=== PATIENT | female | born 1935 | race Caucasian/White ===

== ENCOUNTER 2017-12-08 12:27 | Inpatient (IN) | payer MEDICARE, OTHER ==
[2017-12-08] MEDS ORDERED: NITROGLYCERIN OINT 1 INCH/GM PACKET TOPICAL STA (12:55)
[2017-12-08] MEDS ORDERED: ASPIRIN 81 MG PO STA (12:55)
--- NOTE | 2017-12-08 13:00 | ED ---
General Adult HPI - General Chief complaint: Chest Pain Stated complaint: chest pain Time Seen by Provider: 12/08/17 12:30 Source: patient, RN notes reviewed Mode of arrival: wheelchair Limitations: no limitations - History of Present Illness Initial comments: Left arm pain or shortness of breath since yesterday. Patient states it started last night and continued today. Patient states she's had bypass surgery back in the 90s she also is a diabetic hypertensive and has high cholesterol. Patient states the pain has not gone away so she decided to come in today. Patient didn't want to come in last night because her is sick and he wants take care of her . Patient states she also was sweating last night when the pain started. Patient denies any nausea. Patient denies abdominal pain patient denies any vomiting or diarrhea. Patient denies any recent fever chills or cough. Patient denies lightheadedness dizziness or near syncopal episode. Patient denies any numbness or weakness. 20 legs or calf tenderness. - Related Data Home Medications Medication Instructions Recorded Confirmed Atorvastatin [Lipitor] 40 mg PO DAILY 12/08/17 12/08/17 Citalopram Hydrobromide [CeleXA] 20 mg PO DAILY 12/08/17 12/08/17 Citalopram Hydrobromide [CeleXA] 40 mg PO DAILY 12/08/17 12/08/17 Glycerin/Propylene Glycol 1 - 2 drops RIGHT EYE BID 12/08/17 12/08/17 [Artificial Tears Drops] Multivitamins, Thera [Multivitamin 1 tab PO DAILY 12/08/17 12/08/17 (formulary)] glipiZIDE [Glucotrol] 10 mg PO DAILY 12/08/17 12/08/17 Allergies Allergy/AdvReac Type Severity Reaction Status Date / Time No Known Allergies Allergy Verified 12/08/17 13:04 Review of Systems ROS Statement: Those systems with pertinent positive or pertinent negative responses have been documented in the HPI. ROS Other: All systems not noted in ROS Statement are negative. Past Medical History Past Medical History: Hypertension, Myocardial Infarction (OR) History of Any Multi-Drug Resistant Organisms: None Reported Past Surgical History: Appendectomy, Cholecystectomy, Coronary Bypass/CABG Past Psychological History: Anxiety Smoking Status: Never smoker Past Alcohol Use History: None Reported Past Drug Use History: None Reported General Exam - General Exam Comments Initial Comments: GENERAL: Patient is well-developed and well-nourished. Patient is nontoxic and well- hydrated and is in mild distress. ENT: Neck is soft and supple. No significant lymphadenopathy is noted. Oropharynx is clear. Moist mucous membranes. Neck has full range of motion without eliciting any pain. EYES: The sclera were anicteric and conjunctiva were pink and moist. Extraocular movements were intact and pupils were equal round and reactive to light. Eyelids were unremarkable. PULMONARY: Unlabored respirations. Good breath sounds bilaterally. No audible rales rhonchi or wheezing was noted. CARDIOVASCULAR: There is a regular rate and rhythm without any murmurs gallops or rubs. ABDOMEN: Soft and nontender with normal bowel sounds. No palpable organomegaly was noted. There is no palpable pulsatile mass. SKIN: Skin is clear with no lesions or rashes and otherwise unremarkable. NEUROLOGIC: Patient is alert and oriented x3. Cranial nerves II through XII are grossly intact. Motor and sensory are also intact. Normal speech, volume and content. Symmetrical smile. MUSCULOSKELETAL: Normal extremities with adequate strength and full range of motion. LYMPHATICS: No significant lymphadenopathy is noted PSYCHIATRIC: Normal psychiatric evaluation. Normal interpersonal interactions appears functionally intact in deals appropriately with others. No signs of depression. No signs of anxiety. Limitations: no limitations Course Vital Signs 12/08/17 12/08/17 12:28 13:41 Temperature 98.3 F Pulse Rate 85 78 Respiratory 18 18 Rate Blood Pressure 149/75 182/85 O2 Sat by Pulse 97 97 Oximetry Medical Decision Making - Medical Decision Making EKG shows normal sinus rhythm 82 bpm NE interval is on a 56 dresses under 26 QT interval 454 QTC is 5:30. Patient's EKG shows no acute abnormalities from the previous EKG there is a right bundle skye block was seen previously. Chest x-ray shows no acute abnormality. Chest CT did not show any signs of an aneurysm though a contrast study would be better but her creatinine to about allow us to do that. - Lab Data Result diagrams: 12/08/17 12:57 12/08/17 12:57 Lab Results 12/08/17 12/08/17 12/08/17 Range/Units 12:57 12:57 12:57 WBC 19.3 H (3.8-10.6) k/uL RBC 3.97 (3.80-5.40) m/uL Hgb 11.2 L (11.4-16.0) gm/dL Hct 35.3 (34.0-46.0) % MCV 88.8 (80.0-100.0) fL MCH 28.1 (25.0-35.0) pg MCHC 31.7 (31.0-37.0) g/dL RDW 17.2 H (11.5-15.5) % Plt Count 368 (150-450) k/uL Neutrophils % 83 % Lymphocytes % 10 % Monocytes % 5 % Eosinophils % 1 % Basophils % 0 % Neutrophils # 16.0 H (1.3-7.7) k/uL Lymphocytes # 2.0 (1.0-4.8) k/uL Monocytes # 0.9 (0-1.0) k/uL Eosinophils # 0.2 (0-0.7) k/uL Basophils # 0.0 (0-0.2) k/uL Anisocytosis Slight PT (9.0-12.0) sec INR (<1.2) APTT (22.0-30.0) sec Sodium 142 (137-145) mmol/L Potassium 3.3 L (3.5-5.1) mmol/L Chloride 104 (98-107) mmol/L Carbon Dioxide 22 (22-30) mmol/L Anion Gap 16 mmol/L BUN 22 H (7-17) mg/dL Creatinine 1.60 H (0.52-1.04) mg/dL Est GFR (CKD-EPI)AfAm 35 (>60 ml/min/1.73 sqM) Est GFR (CKD-EPI)NonAf 30 (>60 ml/min/1.73 sqM) Glucose 134 H (74-99) mg/dL Calcium 9.8 (8.4-10.2) mg/dL Magnesium 1.6 (1.6-2.3) mg/dL Total Bilirubin 0.7 (0.2-1.3) mg/dL AST 22 (14-36) U/L ALT 21 (9-52) U/L Alkaline Phosphatase 123 (38-126) U/L Total Creatine Kinase 42 (30-135) U/L CK-MB (CK-2) 0.8 (0.0-2.4) ng/mL CK-MB (CK-2) Rel Index 1.9 Troponin I 0.015 (0.000-0.034) ng/mL Total Protein 7.7 (6.3-8.2) g/dL Albumin 3.9 (3.5-5.0) g/dL Urine Color Urine Appearance (Clear) Urine pH (5.0-8.0) Ur Specific [place] (1.001-1.035) Urine Protein (Negative) Urine Glucose (UA) (Negative) Urine Ketones (Negative) Urine Blood (Negative) Urine Nitrite (Negative) Urine Bilirubin (Negative) Urine Urobilinogen (<2.0) mg/dL Ur Leukocyte Esterase (Negative) Urine RBC (0-5) /hpf Urine WBC (0-5) /hpf Urine WBC Clumps (None) /hpf Ur Squamous Epith Cells (0-4) /hpf Urine Bacteria (None) /hpf Hyaline Casts (0-2) /lpf Urine Mucus (None) /hpf 12/08/17 12/08/17 Range/Units 12:57 14:25 WBC (3.8-10.6) k/uL RBC (3.80-5.40) m/uL Hgb (11.4-16.0) gm/dL Hct (34.0-46.0) % MCV (80.0-100.0) fL MCH (25.0-35.0) pg MCHC (31.0-37.0) g/dL RDW (11.5-15.5) % Plt Count (150-450) k/uL Neutrophils % % Lymphocytes % % Monocytes % % Eosinophils % % Basophils % % Neutrophils # (1.3-7.7) k/uL Lymphocytes # (1.0-4.8) k/uL Monocytes # (0-1.0) k/uL Eosinophils # (0-0.7) k/uL Basophils # (0-0.2) k/uL Anisocytosis PT 11.0 (9.0-12.0) sec INR 1.1 (<1.2) APTT 26.4 (22.0-30.0) sec Sodium (137-145) mmol/L Potassium (3.5-5.1) mmol/L Chloride (98-107) mmol/L Carbon Dioxide (22-30) mmol/L Anion Gap mmol/L BUN (7-17) mg/dL Creatinine (0.52-1.04) mg/dL Est GFR (CKD-EPI)AfAm (>60 ml/min/1.73 sqM) Est GFR (CKD-EPI)NonAf (>60 ml/min/1.73 sqM) Glucose (74-99) mg/dL Calcium (8.4-10.2) mg/dL Magnesium (1.6-2.3) mg/dL Total Bilirubin (0.2-1.3) mg/dL AST (14-36) U/L ALT (9-52) U/L Alkaline Phosphatase (38-126) U/L Total Creatine Kinase (30-135) U/L CK-MB (CK-2) (0.0-2.4) ng/mL CK-MB (CK-2) Rel Index Troponin I (0.000-0.034) ng/mL Total Protein (6.3-8.2) g/dL Albumin (3.5-5.0) g/dL Urine Color Yellow Urine Appearance Cloudy H (Clear) Urine pH 6.5 (5.0-8.0) Ur Specific [place] 1.015 (1.001-1.035) Urine Protein 3+ H (Negative) Urine Glucose (UA) Negative (Negative) Urine Ketones Negative (Negative) Urine Blood Moderate H (Negative) Urine Nitrite Negative (Negative) Urine Bilirubin Negative (Negative) Urine Urobilinogen <2.0 (<2.0) mg/dL Ur Leukocyte Esterase Large H (Negative) Urine RBC 44 H (0-5) /hpf Urine WBC >182 H (0-5) /hpf Urine WBC Clumps Many H (None) /hpf Ur Squamous Epith Cells <1 (0-4) /hpf Urine Bacteria Many H (None) /hpf Hyaline Casts 11 H (0-2) /lpf Urine Mucus Rare H (None) /hpf Disposition Clinical Impression: Chest pain, Urinary tract infection Disposition: ADMITTED IP TO THIS HOSP Referrals: Coni Lopez NPC [REFERRING] - 1-2 days Time of Disposition: 14:58
[2017-12-08 13:10] LABS: Anisocytosis Slight; Basophils % (A) 0 %; Eosinophils # (A) 0.2 k/uL (0-0.7); Eosinophils % (A) 1 %; HCT 35.3 % (34.0-46.0); HGB 11.2 gm/dL (11.4-16.0); Lymphocytes % (A) 10 %; MCH 28.1 pg (25.0-35.0); MCHC 31.7 g/dL (31.0-37.0); MCV 88.8 fL (80.0-100.0); Monocytes # (A) 0.9 k/uL (0-1.0); Monocytes % (A) 5 %; Neutrophils % (A) 83 %; Platelet Count 368 k/uL (150-450); RBC 3.97 m/uL (3.80-5.40); RDW 17.2 % (11.5-15.5); WBC 19.3 k/uL (3.8-10.6)
[2017-12-08 13:18] LABS: INR 1.1 (<1.2); Partial Thromboplastin Time 26.4 sec (22.0-30.0)
[2017-12-08 13:23] LABS: Albumin 3.9 g/dL (3.5-5.0); Calcium 9.8 mg/dL (8.4-10.2); Magnesium 1.6 mg/dL (1.6-2.3); Potassium 3.3 mmol/L (3.5-5.1); Total Bilirubin 0.7 mg/dL (0.2-1.3); Total Protein 7.7 g/dL (6.3-8.2)
--- NOTE | 2017-12-08 13:31 | XR ---
EXAMINATION TYPE: XR chest 2V DATE OF EXAM: 12/08/2017 COMPARISON: 03/10/2013 TECHNIQUE: PA and lateral views submitted. HISTORY: Chest pain FINDINGS: The lungs are clear and there is no pneumothorax, pleural effusion, or focal pneumonia. Subsegmenta l changes at both lung bases. Postoperative change. Arthropathy of the shoulders. Atherosclerotic jorge nge aorta. Degenerative change spine. Surgical clips in the abdomen. Mild cardiomegaly noted. IMPRESSION: 1. Mild cardiomegaly. Basilar atelectasis favored over infiltrate.
[2017-12-08 13:39] LABS: Creatine Kinase MB 0.8 ng/mL (0.0-2.4); Troponin I 0.015 ng/mL (0.000-0.034)
--- NOTE | 2017-12-08 14:29 | CT ---
EXAMINATION TYPE: CT chest wo con DATE OF EXAM: 12/08/2017 COMPARISON: 09/03/2011 HISTORY: Left sided chest pain starting yesterday. CT DLP: 210.8 mGycm. Automated Exposure Control for Dose Reduction was Utilized. TECHNIQUE: CT scan of the thorax is performed without IV contrast. FINDINGS: LUNGS: The lungs are grossly clear, there is no concerning parenchymal mass or nodule identified. T here is no pleural effusion or pneumothorax seen. The tracheobronchial tree is patent. There is inte rlobular septal thickening compatible with chronic interstitial lung disease. Calcifications in the l ilia suggestive of granuloma. MEDIASTINUM: Lack of IV contrast is noted to limit evaluation for mediastinal and especially hilar ad enopathy. There are no definitive greater than 1 cm hilar or mediastinal lymph nodes. Heart is enlarg ed. There are sternotomy wires and coronary artery calcification. Assessment for of the aorta is limited due to lack of contrast. There is mild atherosclerotic changes with no evidence of aneurysm. OTHER: Surgical clips in the gallbladder fossa are noted. Splenic granuloma noted. Hiatal hernia note d and there is a left renal mass measuring 10 Hounsfield units compatible simple cyst. Arthropathy of the shoulders greater on the left. IMPRESSION: 1. Correlate for pulmonary fibrosis. 2. Aorta of normal caliber with mild atherosclerotic changes. 3. Dense coronary artery calcification. 4. Hiatal hernia. There is a calcification or possibly ingested material within the distal esophagus which could be related to perhaps an ingested pill correlate clinically. 5. Granulomatous disease.
[2017-12-08 14:52] LABS: Appearance,Urine Cloudy (Clear); Bacteria,Urine Many /hpf; Bilirubin,Urine Negative (Negative); Blood,Urine Moderate (Negative); Color,Urine Yellow; Glucose,Urine (UA) Negative (Negative); Hyaline Casts,Urine 11 /lpf (0-2); Ketones,Urine Negative (Negative); Leukocyte Esterase,Urine Large (Negative); Mucus,Urine Rare /hpf; Nitrite,Urine Negative (Negative); PH, Urine 6.5 (5.0-8.0); Protein,Urine 3+ (Negative); RBC,Urine 44 /hpf (0-5); Specific Gravity,Urine 1.015 (1.001-1.035); Squamous Epithelial Cell,Urine <1 /hpf (0-4); Urobilinogen,Urine <2.0 mg/dL (<2.0); WBC,Urine >182 /hpf (0-5)
[2017-12-08] MEDS ORDERED: cefTRIAXone 2,000 MG in SODIUM CHLORIDE 0.9% 100 ML IVPB STA (14:56)
[2017-12-08] MEDS ORDERED: NITROGLYCERIN SL TABS 0.4 MG TAB SUBLINGUAL PRN (14:59)
[2017-12-08] MEDS ORDERED: cefTRIAXone IN SWFI 2,000 MG/20 ML SYRINGE IVP ONE (15:00)
[2017-12-08] MEDS: NITROGLYCERIN OINT 1 INCH/GM PACKET TOPICAL SCH ×2 (18:54→23:48)
[2017-12-08 19:28] LABS: Creatine Kinase 39 U/L (30-135)
[2017-12-08 19:41] LABS: Troponin I <0.012 ng/mL (0.000-0.034)
[2017-12-08 21:07] LABS: Glucose,Whole Blood 169 mg/dL (75-99)
[2017-12-08] MEDS ORDERED: MELATONIN 3 MG TABLET PO PRN (22:16)
[2017-12-08] MEDS ORDERED: ONDANSETRON 4 MG/2 ML VIAL IVP PRN (22:16)
[2017-12-08] MEDS ORDERED: CALCIUM CARBONATE 500 MG CHEWABLE PO PRN (22:16)
[2017-12-08] MEDS ORDERED: ALPRAZolam 0.25 MG TAB PO PRN (22:16)
[2017-12-08] MEDS ORDERED: MAGNESIUM HYDROXIDE 2,400 MG/10 ML CUP PO PRN (22:16)
[2017-12-08] MEDS ORDERED: ACETAMINOPHEN TAB 325 MG TAB PO PRN (22:16)
[2017-12-08] MEDS ORDERED: LACTULOSE 20 GM/30 ML CUP PO PRN (22:16)
[2017-12-08] MEDS ORDERED: POTASSIUM CHLORIDE ER 20 MEQ TAB.ER PO STA (23:13)
[2017-12-08] MEDS ORDERED: SODIUM CHLORIDE 0.9% 1,000 ML IV SCH (23:15)
[2017-12-08] MEDS: ARTIFICIAL TEARS-HYPROMELLOSE DROPS 15 ML BTL BOTH EYES SCH (23:48)
--- NOTE | 2017-12-08 23:53 | HP ---
HISTORY AND PHYSICAL DATE OF ADMISSION: 12/08/2017 DATE OF SERVICE: December 08, 2017. PRESENTING COMPLAINT: Chest pain. HISTORY OF PRESENTING COMPLAINT: A very pleasant 82-year-old patient who follows with Dr. Bourgeois and him clerk Dr. Rust. Chronic stable medical conditions include diabetes, hypertension, osteoarthritis. The patient has had a previous bypass. Follows with Dr. Rust the him clerk. She states she had a stress test over a year ago that was negative. The patient takes care of her stroke ridden . Yesterday patient developed a grabbing sensation over the left side of the chest that lasted most of the day and overnight. The patient became short of breath, dizzy, lightheaded, also broke out in a sweat. said the symptoms lasted for the whole time. Symptoms are greatly improved since then. Patient presented to the ER. The patient is found to have infected urine, elevated white count with the ER hence the patient was put on antibiotics. The patient is admitted for unstable angina. Currently chest pain free. Does feel tired and run down. REVIEW OF SYSTEMS: CONSTITUTIONAL: Tired. HEENT none. RESPIRATORY as above. CARDIOVASCULAR as above. GASTROINTESTINAL. None. GENITOURINARY: None. MUSCULOSKELETAL: Arthritic pain in multiple joints. DERMATOLOGIC, HEMATOLOGIC AND LYMPHATICS: None. PSYCHIATRY none. NEUROLOGICAL none. PAST MEDICAL HISTORY: Diabetes, hypertension, coronary artery disease with bypass, primary osteoarthritis, skin cancer. Chronic colon prolapse. PAST SURGICAL HISTORY: Appendectomy, cholecystectomy, coronary artery bypass, skin cancer removal from the nose, right eye cataract removed, colonoscopy with polyp removed, right total knee arthroplasty, partial hysterectomy. PSYCH HISTORY: Anxiety. SOCIAL HISTORY: Does use a cane and a walker to get about. No smoking. No alcohol. FAMILY HISTORY: Reviewed, noncontributory to presentation. HOME MEDICATIONS: 1. Glucotrol 10 mg a day. 2. Multivitamin 1 tablet p.o. daily. 3. Artificial Tears 1-2 drops right eye b.i.d. 4. Celexa 60 mg a day. 5. Lipitor 40 mg a day. ALLERGIES: None. PHYSICAL EXAMINATION: VITAL SIGNS: Temperature 97.8, pulse 79, respiration 16, blood pressure 162/62. Pulse ox 94 percent on 2 L. GENERAL APPEARANCE: Well built, BMI 30.1. Lying in bed, tired appearing. EYES: Pupils equal. Conjunctivae normal. HEENT: External appearance of nose and ears normal. Oral cavity normal. NECK JVD not raised. Mass not palpable. RESPIRATORY: Effort normal. LUNGS: Fair air entry. CARDIOVASCULAR: 1st and second sounds normal. No edema. ABDOMEN: Soft, nontender. Liver and spleen not palpable. LYMPHATICS: No lymph nodes palpable in the neck and axillae. PSYCHIATRY: Alert and oriented times three. Mood and affect slightly anxious- appearing. NEUROLOGICAL: Pupils equal. Cranial nerves grossly intact. Power and sensation grossly intact. MUSCULOSKELETAL: Evidence of severe osteoarthritis in the hands and knees, especially the left foot. INVESTIGATIONS: White count 9.3, hemoglobin 11.2, potassium 3.3, BUN 22, creatinine 1.6060. Lactic acid 2.3. Troponin 0.015, less than 0.012. UA positive for leukocyte esterase. WBC clumps. EKG tracing interpreted by me shows right bundle branch block. Chest x-ray film interpreted by me shows cardiomegaly. ASSESSMENT: 1. Unstable angina in a patient with known coronary artery disease presented with cardiac sounding presentation. Negative stress test over a year ago. The patient may need a cardiac catheterization for more definitive given her presentation. 2. Coronary artery disease, prior history of coronary bypass. 3. Severe primary osteoarthritis multiple joints bilateral. 4. Essential hypertension. 5. Diabetes mellitus type 2 on oral hypoglycemic. 6. Chronic gait dysfunction uses a baseline cane and a walker. 7. Obesity; BMI 30.1. 8. Depression not otherwise specified. 9. Acute urinary tract infection, suspect cystitis. 10.Renal failure, possibly chronic kidney disease stage 3 probably from nephrosclerosis or diabetic nephropathy. PLAN: Home medications resumed. Nitroglycerin paste. We will hold off Glucotrol and follow Accu-Cheks. The patient will be kept n.p.o. after midnight except for medication for possible cardiac catheterization. Though the patient's creatinine is elevated. Will do renal ultrasound to check for chronicity. Copy to Dr. Phelan. CLARA / BRIAN: [id number] /
[2017-12-09 01:32] LABS: Troponin I 0.012 ng/mL (0.000-0.034)
[2017-12-09 05:36] LABS: Glucose,Whole Blood 109 mg/dL (75-99)
[2017-12-09] MEDS: INSULIN ASPART 100 UNIT/ML 1 ML 10 ML VIAL SQ SCH ×3 (05:57→18:46)
[2017-12-09] MEDS: NITROGLYCERIN OINT 1 INCH/GM PACKET TOPICAL SCH ×4 (05:57→22:53)
[2017-12-09 06:02] LABS: Anisocytosis Slight; HCT 31.3 % (34.0-46.0); HGB 9.9 gm/dL (11.4-16.0); Hypochromasia Slight; MCH 28.5 pg (25.0-35.0); MCHC 31.6 g/dL (31.0-37.0); MCV 90.3 fL (80.0-100.0); Mean Platelet Volume 7.1; Platelet Count 334 k/uL (150-450); RBC 3.47 m/uL (3.80-5.40); WBC 12.5 k/uL (3.8-10.6)
[2017-12-09 06:12] LABS: Calcium 9.1 mg/dL (8.4-10.2); Potassium 3.5 mmol/L (3.5-5.1)
[2017-12-09] MEDS ORDERED: ASPIRIN 325 MG TAB PO SCH (09:00)
[2017-12-09] MEDS: ARTIFICIAL TEARS-HYPROMELLOSE DROPS 15 ML BTL BOTH EYES SCH ×4 (09:15→20:18)
[2017-12-09] MEDS: ATORVASTATIN 40 MG TAB PO SCH (09:15)
[2017-12-09] MEDS: MULTIVITAMINS, THERA 1 EACH TAB PO SCH (09:16)
[2017-12-09] MEDS: CITALOPRAM HYDROBROMIDE 20 MG TAB PO SCH ×2 (09:18)
--- NOTE | 2017-12-09 09:32 | US ---
EXAMINATION TYPE: US renals and bladder DATE OF EXAM: 12/09/2017 COMPARISON: NONE CLINICAL HISTORY: assess kidney-for ckd; diabetic EXAM MEASUREMENTS: Right Kidney: 6.4 x 4.0 x 4.1 cm Left Kidney: 9.7 x 5.2 x 4.9 cm Post Void Residual Volume: not assessed on inpatient Right Kidney: small for size and as compared to left kidney; poor corticomedullary differentiation; v iews are limited by overlying bowel gas Left Kidney: mid pole cyst is noted with focal echogenic region possibly represent calcification note d, cyst size = 2.7 x 2.2 x 2.9cm Bladder: not fully distended as not prepped for assessment Bilateral Jets seen: NO, only left ureteral jet was seen after 3 minute observation IMPRESSION: Findings compatible with medical renal disease. Left renal cyst is not clearly simple cystic Limited exam.
[2017-12-09] MEDS ORDERED: NITROGLYCERIN SL TABS 0.4 MG TAB SUBLINGUAL PRN (09:45)
[2017-12-09] MEDS ORDERED: ATORVASTATIN 80 MG TAB PO STA (09:45)
[2017-12-09] MEDS ORDERED: ALPRAZolam 0.25 MG TAB PO PRN (09:45)
[2017-12-09] MEDS ORDERED: ALPRAZolam 0.5 MG TAB PO PRN (09:45)
[2017-12-09] MEDS ORDERED: ASPIRIN 325 MG TAB PO STA (09:45)
[2017-12-09] MEDS: cefTRIAXone IN SWFI 1,000 MG/10 ML SYRINGE IVP SCH (11:12)
[2017-12-09] MEDS: SODIUM CHLORIDE 0.9% 1,000 ML IV SCH ×2 (11:15→18:49)
[2017-12-09 11:45] LABS: Glucose,Whole Blood 196 mg/dL (75-99)
--- NOTE | 2017-12-09 12:12 | ECHOF ---
Referral Reason:cad MEASUREMENTS -------- HEIGHT: 127.0 cm WEIGHT: 55.8 kg BP: 143/65 IVSd: 1.3 cm (0.6 - 1.1) LVIDd: 3.8 cm (3.9 - 5.3) LVPWd: 1.3 cm (0.6 - 1.1) IVSs: 1.5 cm LVIDs: 3.1 cm LVPWs: 1.5 cm LA Diam: 4.0 cm (2.7 - 3.8) LAESV Index (A-L): 41.33 ml/m Ao Diam: 2.8 cm (2.0 - 3.7) AV Cusp: 1.1 cm (1.5 - 2.6) LA Diam: 4.1 cm (2.7 - 3.8) MV EXCURSION: 15.618 mm (> 18.000) MV EF SLOPE: 59 mm/s (70 - 150) EPSS: 0.4 cm MV E Ayan: 0.64 m/s MV DecT: 260 ms MV A Ayan: 1.04 m/s MV E/A Ratio: 0.61 RAP: 5.00 mmHg RVSP: 35.32 mmHg FINDINGS -------- Sinus rhythm. This was a technically good study. The left ventricular size is normal. There is moderate concentric left ventricular hypertrophy. O verall left ventricular systolic function is low-normal with, an EF between 50 - 55 %. The right ventricle is normal in size. The left atrium is mildly dilated. LA is severely dilated >40 ml/m2 The right atrial size is normal. There is mild aortic valve sclerosis. There is no evidence of aortic regurgitation. Mild mitral annular calcification present. Moderate mitral regurgitation is present. Mild tricuspid regurgitation present. There is mild pulmonary hypertension. The right ventricular systolic pressure, as measured by Doppler, is 35.32mmHg. Trace/mild (physiologic) pulmonic regurgitation. The aortic root size is normal. There is no pericardial effusion. CONCLUSIONS -------- 1. The left ventricular size is normal. 2. There is moderate concentric left ventricular hypertrophy. 3. Overall left ventricular systolic function is low-normal with, an EF between 50 - 55 %. 4. The right ventricle is normal in size. 5. The left atrium is mildly dilated. 6. LA is severely dilated >40 ml/m2 7. The right atrial size is normal. 8. There is mild aortic valve sclerosis. 9. Mild mitral annular calcification present. 10. Moderate mitral regurgitation is present. 11. Mild tricuspid regurgitation present. 12. There is mild pulmonary hypertension. 13. The right ventricular systolic pressure, as measured by Doppler, is 35.32mmHg. 14. Trace/mild (physiologic) pulmonic regurgitation. 15. The aortic root size is normal. 16. There is no pericardial effusion. DOOR CAPTAIN: Lisa Santana RDCS
[2017-12-09] MEDS: SODIUM CHLORIDE 0.9% 1,000 ML in EMPTY BAG 1 BAG IV ONE ×2 (13:01→22:53)
--- NOTE | 2017-12-09 16:06 | P.CRDCN ---
History of Present Illness Consult date: 12/09/17 Requesting physician: Scott Gordon Consult reason: chest pain Chief complaint: Chest pain History of present illness: This is an 82-year-old female who follows regularly with Dr. Rust in the office. She has a known history of coronary artery disease with prior bypass surgery in 1997 at which time she underwent a mid-to the LAD, saphenous vein graft to the diuretic. She did have a heart cath in 2006 which revealed 2 patent grafts and 60% mid PLV stenosis, history also of diabetes, hypertension, hyperlipidemia, peripheral vascular disease. Patient presents to the hospital with symptoms of chest pressure and heaviness, she states it felt like a band around her chest. She became extremely diaphoretic and short of breath with the symptoms. According to the patient, she states was having a heart attack. Overall the patient has been doing quite well, no recent angina. Symptoms initially started the day prior to admission, but because she takes care of her who has had a prior stroke, she delayed coming in for one day. Chest x- ray on admission showed mild cardiomegaly with basilar atelectasis favored over infiltrate. CAT scan of the chest was also performed which revealed aorta of normal caliber with mild atherosclerotic changes, possible pulmonary fibrosis, hiatal hernia. EKG shows normal sinus rhythm with right bundle branch block pattern and nonspecific ST-T wave changes. Blood pressure 124/60 with a heart rate in the 80s, 93% on 2. Oxygen. White blood cell count 19.3 on admission, 12.5 this morning, hemoglobin 11.2 on admission, 9.9 this morning, platelet count 334. Sodium 141, potassium 3.5, BUN 22, creatinine 1.4. Magnesium 1.6. Troponins negative 3. At the time of my examination this morning, patient is currently chest pain-free. Past Medical History Past Medical History: Cancer, Diabetes Mellitus, Hypertension, Myocardial Infarction ([place]), Osteoarthritis ([place]) Additional Past Medical History / Comment(s): skin cancer(nose) Last Myocardial Infarction Date:: 1997 History of Any Multi-Drug Resistant Organisms: None Reported Past Surgical History: Appendectomy, Cholecystectomy, Coronary Bypass/CABG, Hysterectomy Additional Past Surgical History / Comment(s): skin cancer removed fromnose, rt eye cataract removed, colonoscopy/polyps removed were benign, total rt knee replacement, partial hysterectomy Past Anesthesia/Blood Transfusion Reactions: No Reported Reaction Smoking Status: Never smoker - Past Family History Father History Unknown: Yes Mother History Unknown: Yes Medications and Allergies Home Medications Medication Instructions Recorded Confirmed Type Atorvastatin [Lipitor] 40 mg PO DAILY 12/08/17 12/08/17 History Citalopram Hydrobromide [CeleXA] 20 mg PO DAILY 12/08/17 12/08/17 History Citalopram Hydrobromide [CeleXA] 40 mg PO DAILY 12/08/17 12/08/17 History Glycerin/Propylene Glycol 1 - 2 drops RIGHT EYE BID 12/08/17 12/08/17 History [Artificial Tears Drops] Multivitamins, Thera [Multivitamin 1 tab PO DAILY 12/08/17 12/08/17 History (formulary)] glipiZIDE [Glucotrol] 10 mg PO DAILY 12/08/17 12/08/17 History Allergies Allergy/AdvReac Type Severity Reaction Status Date / Time No Known Allergies Allergy Verified 12/08/17 13:04 Physical Exam Vitals: Vital Signs Temp Pulse Pulse Resp BP BP Pulse Ox 12/09/17 12:00 98.1 F 81 18 125/59 93 L 12/09/17 08:00 98.3 F 69 18 137/59 98 12/09/17 04:00 72 16 143/65 98 12/09/17 02:35 98.3 F 86 16 115/51 96 12/09/17 00:00 86 12/08/17 20:30 99.3 F 76 16 140/66 96 12/08/17 19:19 97.8 F 79 16 162/62 94 L 12/08/17 18:00 79 16 154/68 97 12/08/17 17:00 74 16 161/73 99 12/08/17 16:00 76 16 171/70 99 Intake and Output 12/09/17 12/09/17 12/09/17 06:59 14:59 22:59 Intake Total 240 Balance 240 Intake: Oral 240 Other: Voiding Method Diaper Diaper # Voids 1 1 # Bowel Movements 1 Weight 56 kg PHYSICAL EXAMINATION: GENERAL: 82-year-old female in no acute distress at the time of my examination HEENT: Head is atraumatic, normocephalic. Pupils equal, round. Sclera anicteric. Conjunctiva are clear. Mucous membranes of the mouth are moist. Neck is supple. There is no elevated jugular venous pressure. No carotid bruit is heard. HEART EXAMINATION: Heart S1, S2 normal. No murmur or gallop heard. CHEST EXAMINATION: Lungs are clear to auscultation and precussion. No chest wall tenderness is noted on palpation or with deep breathing. ABDOMEN: Soft, nontender. Bowel sounds are heard. No organomegaly noted. EXTREMITIES: 2+ peripheral pulses with no evidence of peripheral edema and no calf tenderness noted. NEUROLOGIC patient is awake, alert and oriented X3. . Results 12/09/17 05:32 12/09/17 05:32 Cardiac Enzymes 12/08/17 12/09/17 Range/Units 18:48 00:29 CK-MB (CK-2) 1.0 1.0 (0.0-2.4) ng/mL Troponin I <0.012 0.012 (0.000-0.034) ng/mL Lipids 12/09/17 Range/Units 05:32 Triglycerides 154 H (<150) mg/dL Cholesterol 138 (<200) mg/dL HDL Cholesterol 51 (40-60) mg/dL CBC 12/09/17 Range/Units 05:32 WBC 12.5 H (3.8-10.6) k/uL RBC 3.47 L (3.80-5.40) m/uL Hgb 9.9 L (11.4-16.0) gm/dL Hct 31.3 L (34.0-46.0) % Plt Count 334 (150-450) k/uL Comprehensive Metabolic Panel 12/09/17 Range/Units 05:32 Sodium 141 (137-145) mmol/L Potassium 3.5 (3.5-5.1) mmol/L Chloride 106 (98-107) mmol/L Carbon Dioxide 26 (22-30) mmol/L BUN 22 H (7-17) mg/dL Creatinine 1.47 H (0.52-1.04) mg/dL Glucose 106 H (74-99) mg/dL Calcium 9.1 (8.4-10.2) mg/dL Current Medications Generic Name Dose Route Start Last Admin Trade Name Freq PRN Reason Stop Dose Admin Acetaminophen 650 mg 12/08/17 22:16 Tylenol Tab PO Q6HR PRN Mild Pain or Fever > 100.5 Alprazolam 0.25 mg 12/09/17 09:45 Xanax PO Q6HR PRN Mild Anxiety Alprazolam 0.5 mg 12/09/17 09:45 Xanax PO Q6HR PRN Moderate Anxiety Artificial Tears 2 drops 12/08/17 22:15 12/09/17 11:16 Artificial Tear Drops BOTH EYES Not Given QID JAIRO Aspirin 81 mg 12/10/17 09:00 Aspirin PO DAILY [facility] Atorvastatin Calcium 40 mg 12/09/17 09:00 12/09/17 09:15 Lipitor PO 40 mg DAILY JAIRO Administration Calcium Carbonate/Glycine 1,000 mg 12/08/17 22:16 Tums PO Q4HR PRN Dyspepsia Ceftriaxone Sodium 1,000 mg 12/09/17 09:00 12/09/17 11:12 Rocephin IVP 1,000 mg Q24HR JAIRO Administration Citalopram Hydrobromide 40 mg 12/09/17 09:00 12/09/17 09:18 Celexa PO 40 mg DAILY JAIRO Administration Citalopram Hydrobromide 20 mg 12/09/17 09:00 12/09/17 09:18 Celexa PO 20 mg DAILY JAIRO Administration Sodium Chloride 1,000 mls @ 100 mls/hr 12/09/17 09:45 12/09/17 11:15 Saline 0.9% IV 100 mls/hr .Q10H JAIRO Administration Sodium Chloride 1,000 ml/ IV 1,000 mls @ 56 mls/hr 12/09/17 09:45 12/09/17 13 :01 Solution IV 12/10/17 03:36 Not Given .[id number] ONE 1 ML/KG/HR Insulin Aspart 0 unit 12/09/17 07:30 12/09/17 13:00 Novolog SQ 2 unit AC-TID JAIRO Administration Protocol Lactulose 20 gm 12/08/17 22:16 Cephulac PO DAILY PRN Constipation Losartan Potassium 25 mg 12/10/17 09:00 Cozaar PO DAILY JAIRO Magnesium Hydroxide 2,400 mg 12/08/17 22:16 Milk Of Magnesia PO DAILY PRN Constipation Melatonin 3 mg 12/08/17 22:16 Melatonin PO HS PRN Insomnia Multivitamins 1 each 12/09/17 12:00 12/09/17 09:16 Theragran PO 1 each DAILY@1200 JAIRO Administration Nitroglycerin 1 inch 12/08/17 18:00 12/09/17 11:23 Nitro-Bid Oint TOPICAL 1 inch Q6HR JAIRO Administration Nitroglycerin 0.4 mg 12/08/17 14:59 Nitrostat SUBLINGUAL Q5M PRN Chest Pain Nitroglycerin 0.4 mg 12/09/17 09:45 Nitrostat SUBLINGUAL Q5M PRN Chest Pain Ondansetron HCl 4 mg 12/08/17 22:16 Zofran IVP Q8HR PRN Nausea And Vomiting Intake and Output 12/09/17 12/09/17 12/09/17 06:59 14:59 22:59 Intake Total 240 Balance 240 Intake: Oral 240 Other: Voiding Method Diaper Diaper # Voids 1 1 # Bowel Movements 1 Weight 56 kg 12/09/17 05:32 12/09/17 05:32 EKG Interpretations (text) EKG shows normal sinus rhythm with right bundle branch block pattern and nonspecific ST-T wave changes. Assessment and Plan Plan: Assessment and plan #1 chest discomfort suggestive of unstable angina, troponins negative 3. EKG shows normal sinus rhythm with right bundle branch block pattern and nonspecific ST-T wave changes #2 diabetes #3 hypertension #4 hyperlipidemia #5 peripheral vascular disease #6 mild renal insufficiency #7 coronary artery disease with prior bypass surgery in 1997 at which time patient underwent GARZA to the LAD and saphenous vein graft to the diagonal branch. She did have a heart cath performed in 2006 chest revealed 2 patent grafts with 60% lesion in the PLV branch #8 low-grade temperature with elevated white blood cell count on admission, white blood cell count today is 12.5. Plan We will hydrate the patient, check lytes BUN and creatinine early tomorrow morning. Patient was advised to undergo cardiac catheterization tomorrow, the risks and benefits were explained in detail and she is willing to proceed. This will be performed by Dr. Rust. Further recommendations to follow. DNP note has been reviewed, I agree with a documented findings and plan of care. Patient was seen and examined.
[2017-12-09 16:50] LABS: Glucose,Whole Blood 98 mg/dL (75-99)
[2017-12-09 21:11] LABS: Glucose,Whole Blood 162 mg/dL (75-99)
--- NOTE | 2017-12-09 21:24 | PN ---
PROGRESS NOTE DATE OF SERVICE: 12/09/2017 PRESENTING COMPLAINT: Chest pain. INTERVAL HISTORY: The patient has known coronary artery disease and presented with unstable angina and also renal failure. The patient had some more episodes of chest pain, lying in bed on the left side, some radiation, some tiredness, some shortness of breath. No perspiration. Lying in bed. The patient was seen by Cardiology and they are contemplating a cardiac cath. REVIEW OF SYSTEMS: Done for constitutional, cardiovascular, GI, pulmonary and findings as above. CURRENT MEDICATIONS: Reviewed that include aspirin, nitroglycerin paste, IV fluids. PHYSICAL EXAMINATION: Temperature 97.5, pulse 60, respiratory 18, blood pressure 139/65, pulse ox 93% on 2 L. GENERAL APPEARANCE: Lying in bed, tired appearing. EYES: Pupils are equal. Conjunctivae normal. HEENT: External ears and nose is normal. Oral cavity normal. Decreased hearing. NECK: JVD not raised. Mass not palpable. RESPIRATORY: Effort normal. Lungs are clear. CARDIOVASCULAR: First and seconds sounds, no edema. ABDOMEN: Soft, nontender. Liver and spleen not palpable. PSYCHIATRY: Alert and oriented x3. Mood and affect is normal. INVESTIGATIONS: White count 12.5, hemoglobin 9.9, BUN 22, creatinine 1.47. ASSESSMENT: 1. Unstable angina in a patient with known coronary artery disease presented with cardiac sounding presentation, still having episodes of intermittent chest pain. 2. Coronary artery disease, prior history of coronary bypass. 3. Severe primary osteoarthritis and multiple joints bilateral. 4. Essential hypertension. 5. Diabetes mellitus type 2 on oral hypoglycemic. 6. Chronic gait dysfunction uses a baseline cane and a walker. 7. Obesity; BMI 30.1. 8. Depression, not otherwise specified. 9. Acute UTI, suspect cystitis. 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 PLAN: Patient is being hydrated to take away any acute component of renal failure. Patient is going to have a cardiac cath tomorrow. Repeat electrolytes in the morning. Care was discussed with the patient. MMODL / IJN: [id number] /
[2017-12-10] MEDS: INSULIN ASPART 100 UNIT/ML 1 ML 10 ML VIAL SQ SCH ×3 (06:11→17:22)
[2017-12-10] MEDS: ATORVASTATIN 40 MG TAB PO SCH (06:15)
[2017-12-10] MEDS: ASPIRIN 81 MG PO SCH (06:15)
[2017-12-10 06:20] LABS: Glucose,Whole Blood 123 mg/dL (75-99)
[2017-12-10] MEDS: LOSARTAN 25 MG TAB PO SCH (06:40)
[2017-12-10] MEDS: CITALOPRAM HYDROBROMIDE 20 MG TAB PO SCH ×2 (06:40→06:41)
[2017-12-10] MEDS: NITROGLYCERIN OINT 1 INCH/GM PACKET TOPICAL SCH ×2 (06:41→11:37)
[2017-12-10] MEDS: ARTIFICIAL TEARS-HYPROMELLOSE DROPS 15 ML BTL BOTH EYES SCH ×4 (06:41→20:06)
[2017-12-10] MEDS: SODIUM CHLORIDE 0.9% 1,000 ML IV SCH ×2 (06:41→14:36)
[2017-12-10] MEDS: cefTRIAXone IN SWFI 1,000 MG/10 ML SYRINGE IVP SCH (06:41)
[2017-12-10 07:13] LABS: Calcium 9.2 mg/dL (8.4-10.2); Potassium 3.5 mmol/L (3.5-5.1)
[2017-12-10] MEDS: MULTIVITAMINS, THERA 1 EACH TAB PO SCH (07:50)
[2017-12-10 11:38] LABS: Glucose,Whole Blood 144 mg/dL (75-99)
[2017-12-10] MEDS ORDERED: LIDOCAINE 1% INJ 10MG/ML (20 ML MDV) ONE ×2 (13:17→13:26)
[2017-12-10] MEDS ORDERED: fentaNYL (PF) 50 MCG/ML 2 ML AMP ONE (13:17)
[2017-12-10] MEDS ORDERED: IV FLUID CONTINUATION 450 ML IV ONE (13:19)
[2017-12-10] MEDS ORDERED: fentaNYL (PF) 50 MCG/ML 2 ML AMP IV ONE (13:22)
[2017-12-10] MEDS ORDERED: LIDOCAINE 1% INJ 10MG/ML (20 ML MDV) SQ ONE (13:24)
[2017-12-10] MEDS ORDERED: RX INFO: IV CONTRAST WAS GIVEN 1 EACH MISC MISCELLANE PRN (13:59)
[2017-12-10] MEDS ORDERED: IOPAMIDOL-370 125ML BTL INJ ONE (13:59)
[2017-12-10] MEDS ORDERED: SODIUM CHLORIDE 0.9% 1,000 ML IV SCH (14:00)
[2017-12-10] MEDS ORDERED: SODIUM CHLORIDE 0.9% 1,000 ML IV ONE (14:00)
[2017-12-10] MEDS: ISOSORBIDE MONONITRATE ER 30 MG TAB.ER.24H PO SCH (14:36)
[2017-12-10 17:32] LABS: Glucose,Whole Blood 137 mg/dL (75-99)
[2017-12-10] MEDS: METOPROLOL TARTRATE 25 MG TAB PO SCH (20:06)
--- NOTE | 2017-12-10 20:13 | CC ---
CARDIAC CATHETERIZATION REPORT Mrs. Mayes is an 82-year-old female known history of hypertension, hyperlipidemia, diabetes mellitus, history of coronary disease, status post coronary bypass grafting who presented with symptoms of chest discomfort. She was evaluated by Dr. Osiel Whatley and recommendation made regarding cardiac catheterization. The procedures, risks and complications were discussed with the patient who is in full understanding and agreement. PROCEDURE: Patient was brought to laborer tin can in a fasting semi-sedated state after receiving fentanyl and Benadryl and achieving moderate conscious sedated state. Using Xylocaine anesthesia and Seldinger technique, a a 6-[place] sheath was introduced in the right femoral artery. Selective right and left angiography performed using 6-[place] 4 bend right Gisela catheter and a 6-[place] XB LAD3 guiding catheter. An attempt to cannulate the left main using the 6-[place] 4 bend Gisela, 3.5 Gisela and then multipurpose 2 were unsuccessful. Images of the coronary arteries were obtained. Following that, a the 6-[place] right Gisela catheter was used to cannulate the saphenous vein graft to the diagonal branch, as well as the GARZA to LAD. Images of the grafts were obtained. The multipurpose B2 was used to cross the aortic valve and left ventricle end-diastolic pressure was calculated. Following that, catheter and sheath were removed. Hemostasis was obtained with deployment of an Angio-Seal. There was no immediate complication. The patient is returned to room in stable condition. FINDINGS: FLUOROSCOPY: There was severe calcification involving the left anterior descending artery and the left main. LEFT MAIN: This is a short size vessel bifurcating left circumflex, left anterior descending artery. The left main coronary artery is calcified, but has no evidence of high-grade stenosis. LEFT ANTERIOR DESCENDING ARTERY: This vessel has a 50% to 60% plaque proximally, has diffuse intimal disease beyond that and there is competitive flow from the GARZA. LEFT CIRCUMFLEX: This is a large dominant vessel bifurcating distally PDA and posterolateral segment branches. The left circumflex gives rise to a proximal obtuse marginal branch that is tortuous. The takeoff of the obtuse marginal branch has 60-70% plaque. The PLV has another plaque in the mid segment of about 60-70%. The rest of the vessel has no high-grade stenosis. RIGHT CORONARY ARTERY: This is a small nondominant vessel that has about 40% plaque proximally. Saphenous vein graft to the diagonal branch the proximal distal anastomotic site is patent. The flow into the diagonal branch is brisk. There is no evidence off high-grade stenosis. GARZA: The distal anastomotic site is patent. The flow into the LAD is brisk. There is no evidence of high-grade stenosis. LEFT VENTRICULOGRAM: Left ventriculogram was not performed. LEFT VENTRICLE END-DIASTOLIC PRESSURE: Left ventricle end-diastolic pressure was 10 mmHg. CONCLUSION: 1. Calcified coronary arteries. 2. Subtotally occluded LAD. 3. Moderate disease in the right nondominant vessel, as well as the left circumflex. 4. Patent GARZA to LAD. 5. Patent saphenous vein graft to the diagonal branch. RECOMMENDATION: In view of finding anatomy, there is no progression of disease compared to 2007. I would recommend continuing medical therapy with aggressive coronary risk modification that has been initiated. Those findings and recommendation were discussed with the patient and she is in full understanding and agreement. Duration of procedure is 40 minutes. MMODL / IJN: [id number] /
[2017-12-10 20:47] LABS: Glucose,Whole Blood 132 mg/dL (75-99)
--- NOTE | 2017-12-10 21:46 | PN ---
PROGRESS NOTE DATE OF SERVICE: 12/10/2017. PRESENTING COMPLAINT: Chest pain. INTERVAL HISTORY: The patient with known coronary artery disease presented with unstable angina, rather cardiac-sounding presentation. Also had renal failure. The patient did undergo cardiac catheterization today, I do not have the formal results. The patient informs me no further intervention will be done. She will be treated with medications. Lying in bed, comfortable. REVIEW OF SYSTEMS: Done for constitutional, cardiovascular, GI, cardiovascular, GI, pulmonary; relevant findings as above. CURRENT MEDICATIONS: Reviewed, new one includes Imdur 30 mg a day. PHYSICAL EXAMINATION: Temperature 98.8, pulse 75, respiratory rate 18, blood pressure 136/64, pulse ox 97 percent room air. GENERAL APPEARANCE: Lying in bed, awake. EYES: Pupils equal. Conjunctivae normal. HEENT: external nose and ears normal. Oral cavity normal. Decreased hearing. NECK: JVD not raised. Mass not palpable. Respiratory effort lungs are clear. CARDIOVASCULAR: 1st and 2nd sounds normal. No edema. ABDOMEN: Soft, nontender. Liver and spleen not palpable. PSYCHIATRY: Alert at x3. Mood and affect normal. INVESTIGATIONS: Creatinine 1.16, potassium 3.5. ASSESSMENT: 1. Unstable angina, patient with known coronary artery disease presented with rather cardiac sounding presentation. 2. Status post cardiac catheterization. I do not have the formal results. 3. Coronary artery disease, prior history of coronary bypass. 4. Severe primary osteoarthritis of multiple joints bilaterally. 5. Essential hypertension. 6. Diabetes mellitus type 2 on oral hypoglycemic. 7. Chronic gait dysfunction uses a baseline cane and walker. 8. Obesity; body mass index 30.1. 9. Depression, not otherwise specified. 10.Acute urinary tract infection, uncomplicated. Suspect cystitis. 11.Acute renal failure on presentation, probably ATN, improving. 12.Chronic kidney disease cannot be ruled out at this point. Given the dye load, we will check the patient's creatinine in the morning. We will switch patient's ceftriaxone to Keflex. Care was discussed with the patient. MMODL / IJN: [id number] /
[2017-12-11] MEDS ORDERED: CEPHALEXIN 250 MG CAP PO SCH (06:00)
[2017-12-11 06:36] LABS: Glucose,Whole Blood 118 mg/dL (75-99)
[2017-12-11 06:38] LABS: Calcium 8.8 mg/dL (8.4-10.2); Potassium 3.8 mmol/L (3.5-5.1)
[2017-12-11] MEDS: SODIUM CHLORIDE 0.9% 1,000 ML IV SCH ×2 (06:49→07:46)
[2017-12-11] MEDS: INSULIN ASPART 100 UNIT/ML 1 ML 10 ML VIAL SQ SCH ×2 (06:50→12:32)
[2017-12-11] MEDS: ARTIFICIAL TEARS-HYPROMELLOSE DROPS 15 ML BTL BOTH EYES SCH (07:46)
[2017-12-11] MEDS: ASPIRIN 81 MG PO SCH (08:07)
[2017-12-11] MEDS: CITALOPRAM HYDROBROMIDE 20 MG TAB PO SCH ×2 (08:07)
[2017-12-11] MEDS: ATORVASTATIN 40 MG TAB PO SCH (08:07)
[2017-12-11] MEDS: ISOSORBIDE MONONITRATE ER 30 MG TAB.ER.24H PO SCH (08:08)
[2017-12-11] MEDS: MULTIVITAMINS, THERA 1 EACH TAB PO SCH (08:08)
[2017-12-11] MEDS: LOSARTAN 25 MG TAB PO SCH (08:08)
[2017-12-11] MEDS: METOPROLOL TARTRATE 25 MG TAB PO SCH (08:08)
[2017-12-11 11:57] LABS: Glucose,Whole Blood 107 mg/dL (75-99)
[2017-12-11 12:32] VITALS: BP 128/70; PULSE 62; RESP 16; TEMP 98.1
[2017-12-11 12:44] LABS: Hemoglobin A1C 6.5 % (4.0-6.0)
--- NOTE | 2017-12-12 05:47 | DS ---
DISCHARGE SUMMARY DATE OF ADMISSION: 12/09/17. DATE OF DISCHARGE: 12/11/17. FINAL DIAGNOSES: 1. Unstable angina. 2. Coronary artery disease prior history of coronary bypass. 3. Severe primary osteoarthritis of multiple joints bilaterally. 4. Essential hypertension. 5. Diabetes mellitus type 2 on oral hypoglycemic. 6. Chronic gait dysfunction uses a baseline cane and walker. 7. Obesity; BMI 30.1. 8. Depression, not otherwise specified. 9. Acute urinary tract infection, uncomplicated suspect cystitis. 10.Acute renal failure on presentation, probably ATN, improved. 11.Chronic kidney disease probably stage II, from nephrosclerosis. HOSPITAL COURSE: This patient known coronary disease, present cardiac sounding presentation did undergo cardiac catheterization by Dr. Rust. I did not feel it changed much, Imdur was added. The patient had no further symptoms. The patient's creatinine at time of admission was 1.6 did come down to 1.13 with hydration. Patient otherwise symptom-free. EXAMINATION: Temperature 98.1, pulse 62, blood pressure 120/70. Lungs: Fair entry. Cardiovascular: 1st and 2nd sounds normal. CONSULTATION: Dr. Rust from Interventional Cardiology. HOME GO MEDICATIONS: 1. Lipitor 40 mg p.o. daily. 2. Celexa 60 mg daily. 3. Artificial Tears 1-2 drops right eye b.i.d. 4. Multivitamin 1 tablet p.o. daily. 5. Glucotrol 10 mg p.o. daily. 6. Aspirin 81 mg p.o. daily. 7. Keflex 250 mg p.o. t.i.d. 9 tablets. 8. Imdur ER 30 mg p.o. daily. 9. Cozaar 25 mg p.o. daily. 10.Lopressor 25 mg p.o. b.i.d. Follow with Dr. Rust on 12/18/17, follow with Dr. Coni Lopez 12/16/17. [facility] followup with the patient. MMODL / IJN: [id number] /
== END 2017-12-11 14:12 | disposition home health service (06) | DRG 286 ==
LOC: SUPCPDRO 12:27 → EC 12:27 → 6SEL 15:31 → OBSVTOIN 12-09 15:24
PROVIDERS: ADMIT Hospitalist; ATTEND Hospitalist
PROC: 4A023N7 Measurement of Cardiac Sampling and Pressure, Left Heart, Percutaneous Approach (ICD-10-PCS; principal; 2017-12-09)
PROC: B2111ZZ Fluoroscopy of Multiple Coronary Arteries using Low Osmolar Contrast (ICD-10-PCS; 2017-12-09)
DX: I25.110 Atherosclerotic heart disease of native coronary artery with unstable angina pectoris (principal); N17.0 Acute kidney failure with tubular necrosis; J98.11 Atelectasis; N30.00 Acute cystitis without hematuria; E11.22 Type 2 diabetes mellitus with diabetic chronic kidney disease; E11.51 Type 2 diabetes mellitus with diabetic peripheral angiopathy without gangrene; I45.10 Unspecified right bundle-branch block; I13.10 Hypertensive heart and chronic kidney disease without heart failure, with stage 1 through stage 4 chronic kidney disease, or unspecified chronic kidney disease; N18.3 Chronic kidney disease, stage 3 (moderate); E66.9 Obesity, unspecified; E78.00 Pure hypercholesterolemia, unspecified; E78.5 Hyperlipidemia, unspecified; F32.9 Major depressive disorder, single episode, unspecified; K63.4 Enteroptosis; I12.9 Hypertensive chronic kidney disease with stage 1 through stage 4 chronic kidney disease, or unspecified chronic kidney disease; I25.2 Old myocardial infarction; M15.9 Polyosteoarthritis, unspecified; F41.9 Anxiety disorder, unspecified; R26.9 Unspecified abnormalities of gait and mobility; Z68.30 Body mass index [BMI] 30.0-30.9, adult; Z79.84 Long term (current) use of oral hypoglycemic drugs; Z79.899 Other long term (current) drug therapy; Z96.651 Presence of right artificial knee joint; Z90.710 Acquired absence of both cervix and uterus; Z85.828 Personal history of other malignant neoplasm of skin; Z95.1 Presence of aortocoronary bypass graft; Z90.49 Acquired absence of other specified parts of digestive tract; Z86.010 Personal history of colon polyps; Z98.41 Cataract extraction status, right eye; Z96.1 Presence of intraocular lens
CPT/HCPCS: 36415; 71046; 71250; 76770; 80048; 80053; 80061; 81001; 82550; 82553; 83036; 83605; 83735; 84484; 85025; 85027; 85610; 85730; 87040; 93306; 93459; 96374; 99285

== ENCOUNTER 2018-03-13 14:31 | Observation (INO) | payer MEDICARE, OTHER ==
--- NOTE | 2018-03-13 15:22 | ED ---
General Adult HPI - General Chief complaint: Chest Pain Stated complaint: Chest Pain Time Seen by Provider: 03/13/18 14:46 Source: patient, RN notes reviewed Mode of arrival: EMS Limitations: no limitations - History of Present Illness Initial comments: 82-year-old female presenting to the emergency room today transferred by EMS from [facility] for chest pain. Patient states that she woke up this morning with feeling somewhat "out of it". She does admit that she was experiencing chest pain. She was taken to the hospital. Patient was given nitro. She states at this time all pain has resolved. She does much better. Patient does have elevated troponin 0.034 and was transferred here for cardiac consult. Patient resting comfortably currently with no complaint. - Related Data Home Medications Medication Instructions Recorded Confirmed Atorvastatin [Lipitor] 40 mg PO DAILY 12/08/17 03/13/18 ALPRAZolam [Xanax] 0.25 mg PO BID PRN 03/13/18 03/13/18 Allopurinol [Zyloprim] 300 mg PO DAILY 03/13/18 03/13/18 Fluconazole [Diflucan] 150 mg PO ONCE 03/13/18 03/13/18 Magnesium Oxide [Mag-Ox] 400 mg PO DAILY 03/13/18 03/13/18 Allergies Allergy/AdvReac Type Severity Reaction Status Date / Time No Known Allergies Allergy Verified 03/13/18 15:52 Review of Systems ROS Statement: Those systems with pertinent positive or pertinent negative responses have been documented in the HPI. ROS Other: All systems not noted in ROS Statement are negative. Past Medical History Past Medical History: Cancer, Diabetes Mellitus, Hypertension, Myocardial Infarction ([place]), Osteoarthritis ([place]) Additional Past Medical History / Comment(s): skin cancer(nose) Last Myocardial Infarction Date:: 1997 History of Any Multi-Drug Resistant Organisms: None Reported Past Surgical History: Appendectomy, Cholecystectomy, Coronary Bypass/CABG, Hysterectomy Additional Past Surgical History / Comment(s): skin cancer removed fromnose, rt eye cataract removed, colonoscopy/polyps removed were benign, total rt knee replacement, partial hysterectomy Past Anesthesia/Blood Transfusion Reactions: No Reported Reaction Past Psychological History: Anxiety Smoking Status: Never smoker - Past Family History Father History Unknown: Yes Mother History Unknown: Yes General Exam - General Exam Comments Initial Comments: General: The patient is awake and alert, in no distress, and does not appear acutely ill. Eye: There is normal conjunctiva bilaterally. No signs of icterus. Ears, nose, mouth and throat: There are moist mucous membranes and no oral lesions. Neck: The neck is supple, there is no tenderness or JVD. Cardiovascular: There is a regular rate and rhythm. No murmur, rub or gallop is appreciated. Respiratory: Lungs are clear to auscultation, respirations are non-labored, breath sounds are equal. No wheezes, stridor, rales, or rhonchi. Gastrointestinal: Soft, non-distended, non-tender abdomen without masses or organomegaly noted. There is no rebound or guarding present. No CVA tenderness. Musculoskeletal: Normal ROM, no tenderness. Strength 5/5. Sensation intact. Pulses equal bilaterally 2+. Neurological: A&O x 3. CN II-XII intact, There are no obvious motor or sensory deficits. Coordination appears grossly intact. Speech is normal. Skin: Skin is warm and dry and no rashes or lesions are noted. Psychiatric: Cooperative, appropriate mood & affect, normal judgment. Limitations: no limitations Course Vital Signs 03/13/18 03/13/18 03/13/18 14:52 14:57 15:00 Temperature 98.4 F Pulse Rate 66 80 Respiratory 16 16 Rate Blood Pressure 165/77 165/77 O2 Sat by Pulse 96 95 Oximetry 03/13/18 16:00 Temperature Pulse Rate 86 Respiratory 16 Rate Blood Pressure 164/78 O2 Sat by Pulse 97 Oximetry EKG Findings - EKG Comments: EKG Findings:: EKG performed at 1453: Shows sinus rhythm with PACs at 79 bpm. SD interval 144. QRS 130. QT/QTc 442/506. No acute ST changes. EKG compared to previous EKG on 12/08/2017. Medical Decision Making - Medical Decision Making Patient reexamined at this time shows no signs of distress. She is resting comfortably. Patient's troponin is 0.029. Troponin earlier today [facility] [employer] [facility] 0.034. Patient still resting comfortably chest pain-free. Chest x- ray performed and [facility] was negative for any acute abnormality. Patient's EKG showed no acute change here. Will be admitted to the hospital with consult to cardiology. - Lab Data Result diagrams: 03/13/18 15:12 03/13/18 15:12 Lab Results 03/13/18 03/13/18 03/13/18 Range/Units 15:12 15:12 15:12 WBC 10.6 (3.8-10.6) k/uL RBC 3.86 (3.80-5.40) m/uL Hgb 10.3 L (11.4-16.0) gm/dL Hct 32.4 L (34.0-46.0) % MCV 83.8 (80.0-100.0) fL MCH 26.8 (25.0-35.0) pg MCHC 32.0 (31.0-37.0) g/dL RDW 18.0 H (11.5-15.5) % Plt Count 418 (150-450) k/uL Neutrophils % 73 % Lymphocytes % 16 % Monocytes % 6 % Eosinophils % 3 % Basophils % 0 % Neutrophils # 7.7 (1.3-7.7) k/uL Lymphocytes # 1.7 (1.0-4.8) k/uL Monocytes # 0.6 (0-1.0) k/uL Eosinophils # 0.3 (0-0.7) k/uL Basophils # 0.0 (0-0.2) k/uL Hypochromasia Slight Anisocytosis Slight PT (9.0-12.0) sec INR (<1.2) APTT (22.0-30.0) sec Sodium 140 (137-145) mmol/L Potassium 3.3 L (3.5-5.1) mmol/L Chloride 105 (98-107) mmol/L Carbon Dioxide 26 (22-30) mmol/L Anion Gap 9 mmol/L BUN 12 (7-17) mg/dL Creatinine 1.07 H (0.52-1.04) mg/dL Est GFR (CKD-EPI)AfAm 57 (>60 ml/min/1.73 sqM) Est GFR (CKD-EPI)NonAf 49 (>60 ml/min/1.73 sqM) Glucose 115 H (74-99) mg/dL Calcium 9.2 (8.4-10.2) mg/dL Magnesium 1.9 (1.6-2.3) mg/dL Total Bilirubin 0.7 (0.2-1.3) mg/dL AST 22 (14-36) U/L ALT 18 (9-52) U/L Alkaline Phosphatase 111 (38-126) U/L Total Creatine Kinase 29 L (30-135) U/L CK-MB (CK-2) 0.5 (0.0-2.4) ng/mL CK-MB (CK-2) Rel Index 1.7 Troponin I 0.029 (0.000-0.034) ng/mL Total Protein 7.2 (6.3-8.2) g/dL Albumin 3.5 (3.5-5.0) g/dL 03/13/18 Range/Units 15:12 WBC (3.8-10.6) k/uL RBC (3.80-5.40) m/uL Hgb (11.4-16.0) gm/dL Hct (34.0-46.0) % MCV (80.0-100.0) fL MCH (25.0-35.0) pg MCHC (31.0-37.0) g/dL RDW (11.5-15.5) % Plt Count (150-450) k/uL Neutrophils % % Lymphocytes % % Monocytes % % Eosinophils % % Basophils % % Neutrophils # (1.3-7.7) k/uL Lymphocytes # (1.0-4.8) k/uL Monocytes # (0-1.0) k/uL Eosinophils # (0-0.7) k/uL Basophils # (0-0.2) k/uL Hypochromasia Anisocytosis PT 11.3 (9.0-12.0) sec INR 1.1 (<1.2) APTT 28.0 (22.0-30.0) sec Sodium (137-145) mmol/L Potassium (3.5-5.1) mmol/L Chloride (98-107) mmol/L Carbon Dioxide (22-30) mmol/L Anion Gap mmol/L BUN (7-17) mg/dL Creatinine (0.52-1.04) mg/dL Est GFR (CKD-EPI)AfAm (>60 ml/min/1.73 sqM) Est GFR (CKD-EPI)NonAf (>60 ml/min/1.73 sqM) Glucose (74-99) mg/dL Calcium (8.4-10.2) mg/dL Magnesium (1.6-2.3) mg/dL Total Bilirubin (0.2-1.3) mg/dL AST (14-36) U/L ALT (9-52) U/L Alkaline Phosphatase (38-126) U/L Total Creatine Kinase (30-135) U/L CK-MB (CK-2) (0.0-2.4) ng/mL CK-MB (CK-2) Rel Index Troponin I (0.000-0.034) ng/mL Total Protein (6.3-8.2) g/dL Albumin (3.5-5.0) g/dL Disposition Clinical Impression: Chest pain, Elevated troponin Disposition: ADMITTED IP TO THIS HOSP Condition: Good Is patient prescribed a controlled substance at d/c from ED?: No Referrals: Rahul Phelan MD [Primary Care Provider] - 1-2 days Time of Disposition: 17:07
[2018-03-13 15:27] LABS: Anisocytosis Slight; Basophils % (A) 0 %; Eosinophils # (A) 0.3 k/uL (0-0.7); Eosinophils % (A) 3 %; HCT 32.4 % (34.0-46.0); HGB 10.3 gm/dL (11.4-16.0); Hypochromasia Slight; Lymphocytes # (A) 1.7 k/uL (1.0-4.8); Lymphocytes % (A) 16 %; MCH 26.8 pg (25.0-35.0); MCV 83.8 fL (80.0-100.0); Mean Platelet Volume 6.7; Monocytes # (A) 0.6 k/uL (0-1.0); Monocytes % (A) 6 %; Neutrophils # (A) 7.7 k/uL (1.3-7.7); Neutrophils % (A) 73 %; Platelet Count 418 k/uL (150-450); RBC 3.86 m/uL (3.80-5.40); WBC 10.6 k/uL (3.8-10.6)
[2018-03-13 15:36] LABS: Albumin 3.5 g/dL (3.5-5.0); Calcium 9.2 mg/dL (8.4-10.2); Magnesium 1.9 mg/dL (1.6-2.3); Potassium 3.3 mmol/L (3.5-5.1); Total Bilirubin 0.7 mg/dL (0.2-1.3); Total Protein 7.2 g/dL (6.3-8.2)
[2018-03-13 16:08] LABS: Creatine Kinase MB 0.5 ng/mL (0.0-2.4); Troponin I 0.029 ng/mL (0.000-0.034)
[2018-03-13 16:13] LABS: INR 1.1 (<1.2); Prothrombin Time 11.3 sec (9.0-12.0)
[2018-03-13] MEDS ORDERED: NITROGLYCERIN SL TABS 0.4 MG TAB SUBLINGUAL PRN (17:09)
[2018-03-13] MEDS ORDERED: SODIUM CHLORIDE 0.9% 1,000 ML IV ONE (17:09)
[2018-03-13 18:09] VITALS: BMI 30.9
[2018-03-13] MEDS ORDERED: ALPRAZolam 0.25 MG TAB PO PRN (19:22)
[2018-03-13 22:00] LABS: Creatine Kinase MB 0.5 ng/mL (0.0-2.4); Troponin I 0.019 ng/mL (0.000-0.034)
--- NOTE | 2018-03-13 23:51 | HP ---
HISTORY AND PHYSICAL DATE OF ADMISSION: March 13, 2018. PRESENTING COMPLAINT: Chest pain. HISTORY OF PRESENTING COMPLAINT: This is an 82-year-old patient who was here on December 09, 2017. The patient was then diagnosed with unstable angina, has a known history of coronary artery disease with prior bypass. The patient did undergo cardiac catheterization done by Dr. Rust. It was felt there was no other room for further intervention and she was managed medically. Imdur was added. Patient was discharged subsequently. The patient's chronic stable medical conditions otherwise include primary osteoarthritis, hypertension, diabetes mellitus type 2, gait dysfunction, uses a cane and a walker, depression, and chronic kidney disease stage 2. The patient has been having some nausea and diarrhea, went to see her doctor. She was told she has severe constipation, was given an enema and she had a good large amount of bowel movement. She was told to go home and take Dulcolax. She mistook the information and took all the full Dulcolax together and felt really unwell after that having a lot of bowel movements. Yesterday she developed sharp pain going across the chest, did not go to the neck with no relief. This felt like a sharp pain. The patient felt unwell, slightly nauseated, tired, run down, and the patient presented to an outside facility. The patient's troponin was 0.034 and given her cardiac history, the patient was sent down here. The patient has seen Dr. Rust previously. Symptoms lasted for good for few hours. Now feeling somewhat better. REVIEW OF SYSTEMS: CONSTITUTIONAL: Tired. HEENT: None. RESPIRATORY as above. CARDIOVASCULAR as above. GASTROINTESTINAL as above. none. MUSCULOSKELETAL: Arthritic pain in joints. DERMATOLOGICAL, HEMATOLOGIC, LYMPHATIC: none. PSYCHIATRY: None. NEUROLOGICAL: None. PAST MEDICAL HISTORY: Of diabetes, hypertension, coronary artery disease with bypass, primary osteoarthritis, skin cancer, chronic colon prolapse. PAST SURGICAL HISTORY: Appendectomy, cholecystectomy, coronary artery bypass, skin cancer removed from nose, right eye cataract removed, colonoscopy with polyp removed, right total knee arthroplasty, partial hysterectomy, cardiac catheterization. PAST PSYCH HISTORY: Anxiety. SOCIAL HISTORY: Does use a cane and a walker. No smoking. No alcohol. Lives with her at home. FAMILY HISTORY: Reviewed. Noncontributory to presentation. HOME MEDICATIONS: As listed: 1. Magnesium oxide 1 mg a day. 2. Lipitor 40 mg a day. 3. Adderall 300 mg a day. The patient's medications, she was sent home with quite different than above. ALLERGIES: None. PHYSICAL EXAMINATION: VITAL SIGNS: Temperature 98.5, pulse 59, respiration 17, blood pressure 144/65, pulse ox 96% on room air. GENERAL APPEARANCE: Average build, lying in bed, awake. EYES: Pupils equal. Conjunctivae normal. HEENT: External appearance of nose and ears normal. Oral cavity normal. NECK: JVD not raised. Mass not palpable. RESPIRATORY: Effort normal. LUNGS: Fair entry. CARDIOVASCULAR: 1st and 2nd sounds normal. No edema. ABDOMEN: Soft, nontender. Liver and spleen not palpable. LYMPHATICS: No lymph nodes palpable in neck or axillae. PSYCHIATRY: Alert and oriented times three. Mood and affect normal. NEUROLOGICAL: Pupils equal. Cranial nerves grossly intact. Power and sensation grossly intact. MUSCULOSKELETAL: Evidence of severe osteoarthritis especially in the hands and knees. INVESTIGATIONS: Patient's troponin at another place was 0.034. White count 10.6, hemoglobin 10.3, potassium 3.3, BUN 12, creatinine 1.07, troponin 0.029, 0.019. EKG tracing personally reviewed by me poor baseline tracing with some possible ST-segment changes. ASSESSMENT: 1. Possible angina in a patient known coronary artery disease probably from hemodynamic stress of severe diarrhea. 2. Coronary artery disease with prior history of coronary bypass and recent cardiac catheterization in October of this year. 3. Severe primary osteoarthritis multiple joints. 4. Essential hypertension. 5. Diabetes mellitus Type 2, on oral hypoglycemic. 6. Chronic gait dysfunction uses a baseline cane and walker. 7. Depression, not otherwise specified. 8. 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 PLAN: Patient reassured. We will put the patient on Metamucil to get a more regulated bowel. The patient should be managed medically. We will have the nurse confirm patient's home medications and hopefully patient can be discharged tomorrow after review by Cardiology. Copy to Dr. Phelan. CLARA / BRIAN: [id number] /
[2018-03-14 04:03] LABS: Cholesterol 176 mg/dL (<200); HDL Cholesterol 54 mg/dL (40-60); LDL Cholesterol,Calculated 92 mg/dL (0-99); Triglycerides 151 mg/dL (<150)
[2018-03-14 04:47] LABS: Creatine Kinase MB 0.5 ng/mL (0.0-2.4); Troponin I 0.019 ng/mL (0.000-0.034)
[2018-03-14 06:32] LABS: Anisocytosis Slight; HCT 33.4 % (34.0-46.0); HGB 9.9 gm/dL (11.4-16.0); Hypochromasia Moderate; MCH 25.6 pg (25.0-35.0); MCHC 29.7 g/dL (31.0-37.0); MCV 86.2 fL (80.0-100.0); Mean Platelet Volume 6.7; Platelet Count 412 k/uL (150-450); RBC 3.87 m/uL (3.80-5.40); RDW 17.7 % (11.5-15.5); WBC 7.4 k/uL (3.8-10.6)
[2018-03-14 07:04] LABS: Potassium 3.4 mmol/L (3.5-5.1)
[2018-03-14 08:16] VITALS: RESP 18
[2018-03-14] MEDS ORDERED: PSYLLIUM HUSK 100% 6 GM PACKET PO SCH (09:00)
[2018-03-14] MEDS ORDERED: ASPIRIN 325 MG TAB PO SCH (09:00)
[2018-03-14] MEDS ORDERED: MAGNESIUM OXIDE 400 MG TAB PO SCH (09:00)
[2018-03-14] MEDS ORDERED: ATORVASTATIN 40 MG TAB PO SCH (09:00)
[2018-03-14] MEDS ORDERED: ALLOPURINOL 300 MG TAB PO SCH (09:00)
[2018-03-14 11:12] VITALS: BP 132/65; PULSE 81; TEMP 98.4
[2018-03-14] MEDS ORDERED: METOPROLOL TARTRATE 25 MG TAB PO SCH (13:30)
[2018-03-14] MEDS ORDERED: ISOSORBIDE MONONITRATE ER 30 MG TAB.ER.24H PO SCH (13:30)
[2018-03-14] MEDS ORDERED: LOSARTAN 25 MG TAB PO SCH (13:30)
[2018-03-14] MEDS ORDERED: ARTIFICIAL TEARS-HYPROMELLOSE DROPS 15 ML BTL BOTH EYES SCH (13:30)
[2018-03-14] MEDS ORDERED: CITALOPRAM HYDROBROMIDE 20 MG TAB PO SCH (13:30)
--- NOTE | 2018-03-14 23:11 | CONS ---
CONSULTATION Please refer to my detailed consultation from November. Mrs. Yoanna Mayes is an 82-year-old lady with a known history of CAD, prior bypass surgery, whose recent cardiac cath revealed that the grafts are patent. She came to the emergency room brought in by EMS from [facility] with an apparent episode of chest pain. She woke up and felt that something was jumping in her chest. She had pain which she felt was sharp. She had extensive bowel movement after an enema and also took some Dulcolax and had abdominal discomfort. Her troponin was equivocal. She is asymptomatic, feels well, wishes to go home. Her quality of her chest pain is very atypical, not suggestive of angina. She does have CAD, previous bypass surgery and recent hospitalization with chest pain, required a cardiac catheterization which revealed that she did not have any significant obstructive CAD in her [place] vessels or bypass grafts. The patient had a calcified coronary artery, subtotally occluded LAD with GARZA to LAD that was patent and vein graft to the diagonal that was patent. There was moderate disease in the nondominant RCA as well as circumflex. LV pressures were normal. This patient is asymptomatic at the time of my evaluation and wishes to go home. PAST MEDICAL HISTORY: 1. CAD with a history of prior aortocoronary bypass surgery, hypertension, type 2 diabetes, hypertension, hyperlipidemia. 2. The patient also has mild renal insufficiency. 3. Her aortocoronary bypass surgery was performed in 1997. MEDICATIONS: At home include losartan, metoprolol tartrate, Imdur, atorvastatin, aspirin. ALLERGIES: None. REVIEW OF SYSTEMS: Unremarkable other than above-mentioned facts. PHYSICAL EXAMINATION: Blood pressure is 132/70, pulse rate is 80 per minute and regular. HEENT unremarkable. Fundus was not examined by me. Neck is supple. No JVD. I do not hear a carotid bruit. There is no thyromegaly. Heart exam reveals S1, S2 heard normally. No significant murmurs are detected. There is a soft murmur at the left lower sternal border. Lungs are clear. Abdomen is soft, nontender. Lower extremities reveal normal pulses. No edema. Central nervous system is normal. EKG revealed sinus mechanism with a right bundle and ST-segment abnormality. LABORATORY DATA: Reveals equivocal and unremarkable troponins of 0.02 and 0.01. IMPRESSION: 1. Atypical chest pain. 2. Stable coronary artery disease with previous bypass surgery. 3. Hypertension. 4. Hypercholesterolemia. 5. History of recent cardiac cath. RECOMMENDATIONS: I am recommending that we resume her medications, increase activity and she can be discharged and will follow up with Dr. Rust in the next 2-3 weeks as scheduled. I evaluated the patient, discussed with her at length and advised her to be compliant with medications. Her who is a retired pharmacist seems to be asking her to hold some medications and that is what she disclosed and we had a discussion about this and I advised that she should take all medications as advised and I requested her not to be involved in holding her medications, but rather calling us if he has a question. CLARA / BRIAN: [id number] /
--- NOTE | 2018-03-15 00:11 | DS ---
DISCHARGE SUMMARY DATE OF ADMISSION: 03/13/2018 DATE OF DISCHARGE: 03/14/2018. DISCHARGE DIAGNOSES: 1. Possible angina in a patient known to have coronary artery disease. 2. Coronary artery disease, prior history of coronary bypass and recent cardiac catheterization in October of this year. 3. Severe primary osteoarthritis of multiple joints. 4. Essential hypertension. 5. Diabetes mellitus type 2 on oral hypoglycemic. 6. Chronic gait dysfunction. At baseline uses a cane and a walker. 7. Depression, not otherwise specified. 8. 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 HOSPITAL COURSE: This patient was taking laxatives and enema, rather excessive dose for 2 days. A lot of bowel movements. Presented with chest pain, a small troponin leak. The patient had a recent cardiac catheterization, was transferred from a hospital up [place]. The patient was told to be more careful with the laxatives, started on Metamucil. Seen by Dr. Osile Whatley today. Patient is symptom-free, very keen to go home. PHYSICAL EXAMINATION: Temperature 98.4, pulse 81, respiratory 18, blood pressure 132/65. LUNGS: Fair air entry. LABS: Troponin 0.019, potassium 3.4, creatinine 0.97. HOME GO MEDICATIONS: 1. Xanax 0.25 p.o. b.i.d. p.r.n. 2. Allopurinol 200 mg a day. 3. Artificial Tears 1 drop both eyes b.i.d. 4. Aspirin 81 mg a day. 5. Lipitor 40 mg p.o. daily. 6. Celexa 60 mg p.o. daily. 7. Imdur ER 30 mg p.o. daily. 8. Cozaar 1 tablet p.o. daily. 9. Lopressor 25 mg p.o. b.i.d. 10.Multivitamin 1 tab daily. 11.Nitrostat 0.4 sublingual q.5 p.r.n. 12.Metamucil 6 grams p.o. daily. DISPOSITION: Home. Follow with Dr. Rust in [address] Phelan in 3 days. Care was discussed with Dr. Whatley today and also with the patient, her and [id number] and importance of taking medication properly was discussed. Discussion and discharge planning more than 35 minutes. MMODL / IJN: [id number] /
[2018-03-15] MEDS ORDERED: ASPIRIN 81 MG PO SCH (09:00)
== END 2018-03-14 14:56 | disposition home or self-care (01) ==
LOC: EC 14:31 → 3SCARD 17:25
PROVIDERS: ADMIT Hospitalist; ATTEND Hospitalist
DX: R07.89 Other chest pain (principal); R77.8 Other specified abnormalities of plasma proteins; I12.9 Hypertensive chronic kidney disease with stage 1 through stage 4 chronic kidney disease, or unspecified chronic kidney disease; N18.2 Chronic kidney disease, stage 2 (mild); E11.22 Type 2 diabetes mellitus with diabetic chronic kidney disease; I25.10 Atherosclerotic heart disease of native coronary artery without angina pectoris; M15.9 Polyosteoarthritis, unspecified; E78.5 Hyperlipidemia, unspecified; E78.00 Pure hypercholesterolemia, unspecified; K59.00 Constipation, unspecified; F41.9 Anxiety disorder, unspecified; F32.9 Major depressive disorder, single episode, unspecified; R26.9 Unspecified abnormalities of gait and mobility; R11.0 Nausea; R19.7 Diarrhea, unspecified; Z79.84 Long term (current) use of oral hypoglycemic drugs; Z79.899 Other long term (current) drug therapy; I25.2 Old myocardial infarction; Z90.49 Acquired absence of other specified parts of digestive tract; Z95.1 Presence of aortocoronary bypass graft; Z90.710 Acquired absence of both cervix and uterus; Z96.651 Presence of right artificial knee joint; Z98.41 Cataract extraction status, right eye; Z85.828 Personal history of other malignant neoplasm of skin; Z86.010 Personal history of colon polyps
CPT/HCPCS: 99285; 36415; 93005; 80061; 80053; 80048; 82550 ×2; 82553 ×2; 83735; 84484 ×2; 85025; 85027; 85610; 85730; G0378 ×2

== ENCOUNTER 2019-03-16 14:30 | Inpatient (IN) | payer MEDICARE, OTHER ==
[2019-03-16 14:47] LABS: Glucose,Whole Blood 174 mg/dL (75-99)
[2019-03-16] MEDS ORDERED: NALOXONE 0.4 MG/ML 1 ML VIAL IV PRN (15:05)
--- NOTE | 2019-03-16 15:05 | ED ---
General Adult HPI - General Chief complaint: Altered Mental Status Stated complaint: altered mental status Time Seen by Provider: 03/16/19 14:33 Source: patient, RN/MD, RN notes reviewed, old records reviewed (from [facility]) Mode of arrival: EMS Limitations: no limitations - History of Present Illness Initial comments: patient is a pleasant 83-year-old female presenting to the emergency Department as a transfer from [facility]. Patient reportedly has been having hallucinations. Patient has been generally weak and had some slurred speech this morning. Blood sugar was lower at 48. She was seen and [facility] and transferred for neurology evaluation. Troponin was reported as slightly elevated 0.032. Patient has had some chest discomfort. Patient states chest discomfort is chronic and unchanged as well as her mild dyspnea or patient states both of been present for years. Patient did have a fall a few days ago and struck her head. Patient believes she may have had a syncopal episode prior to that. No leg pain or leg swelling. - Related Data Home Medications Medication Instructions Recorded Confirmed ALPRAZolam [Xanax] 0.25 mg PO BID PRN 03/13/18 03/13/18 Allopurinol [Zyloprim] 300 mg PO DAILY 03/13/18 03/13/18 Artificial Tears-Hypromellose 1 drop BOTH EYES BID 03/14/18 03/14/18 [Artificial Tear Drops] Citalopram Hydrobromide [CeleXA] 60 mg PO DAILY 03/14/18 03/14/18 Multivitamin [Multivitamins Adult 03/14/18 Gummies] Previous Rx's Medication Instructions Recorded Aspirin 81 mg PO DAILY #30 chew 03/14/18 Atorvastatin [Lipitor] 40 mg PO DAILY #30 tab 03/14/18 Isosorbide Mononitrate ER [Imdur] 30 mg PO DAILY #30 tab.er.24h 03/14/18 Losartan Potassium [Cozaar] 1 tab PO DAILY #30 tablet 03/14/18 Metoprolol Tartrate [Lopressor] 25 mg PO BID #60 tab 03/14/18 Nitroglycerin Sl Tabs [Nitrostat] 0.4 mg SUBLINGUAL Q5M PRN #25 tab 03/14/18 Psyllium Husk 100% [Metamucil 6 gm PO DAILY #30 packet 03/14/18 Packet] Allergies Allergy/AdvReac Type Severity Reaction Status Date / Time No Known Allergies Allergy Verified 03/13/18 15:52 Review of Systems ROS Statement: Those systems with pertinent positive or pertinent negative responses have been documented in the HPI. ROS Other: All systems not noted in ROS Statement are negative. Constitutional: Denies: fever Eyes: Denies: eye pain ENT: Denies: ear pain Respiratory: Reports: as per HPI. Denies: cough Cardiovascular: Reports: as per HPI Endocrine: Denies: fatigue Gastrointestinal: Denies: abdominal pain Genitourinary: Denies: dysuria Neurological: Reports: weakness (generalized). Denies: headache Psychiatric: Reports: auditory hallucinations, visual hallucinations Past Medical History Past Medical History: Cancer, Diabetes Mellitus, Hypertension, Myocardial Infarction ([place]), Osteoarthritis (OA) Additional Past Medical History / Comment(s): skin cancer(nose) Last Myocardial Infarction Date:: 1997 History of Any Multi-Drug Resistant Organisms: None Reported Past Surgical History: Appendectomy, Cholecystectomy, Coronary Bypass/CABG, Hysterectomy Additional Past Surgical History / Comment(s): CABG- 9years [address] Rust. skin cancer removed fromnose, rt eye cataract removed, colonoscopy/polyps removed were benign, total rt knee replacement, partial hysterectomy Past Anesthesia/Blood Transfusion Reactions: No Reported Reaction Past Psychological History: Anxiety Smoking Status: Never smoker Past Alcohol Use History: None Reported Past Drug Use History: None Reported - Past Family History Father History Unknown: Yes Mother History Unknown: Yes General Exam Limitations: no limitations General appearance: alert Head exam: Present: other (soft tissue swelling of the forehead) Eye exam: Present: normal appearance, PERRL, EOMI ENT exam: Present: normal oropharynx Neck exam: Present: normal inspection. Absent: tenderness Respiratory exam: Present: normal lung sounds bilaterally Cardiovascular Exam: Present: regular rate, normal rhythm Expanded Peripheral pulses: 2+: Radial (R), Radial (L), Dorsalis Pedis (R), Dorsalis Pedis (L) GI/Abdominal exam: Present: soft. Absent: tenderness Extremities exam: Present: normal inspection, full ROM, tenderness (mild tenderness right elbow) Neurological exam: Present: alert, CN II-XII intact. Absent: motor sensory deficit Expanded Motor strength exam: RUE: 5, LUE: 5, RLE: 5, LLE: 5 Psychiatric exam: Present: normal affect, normal mood Skin exam: Present: normal color Course Vital Signs 03/16/19 03/16/19 14:32 14:43 Temperature 98.4 F Pulse Rate 72 Pulse Rate [ 70 Search Analyst ] Respiratory 19 22 Rate Blood Pressure 169/68 O2 Sat by Pulse 96 Oximetry EKG Findings - EKG Comments: EKG Findings:: normal sinus rhythm 74. NV 144. QRS 146. QT 40. QTc 532. Normal axis. Right bundle branch block. No acute ST change. Medical Decision Making - Medical Decision Making patient updated on results and plan. Dr. Gordon has been H for admission covering for Dr. Phelan. - Lab Data Lab Results 03/16/19 Range/Units 14:45 POC Glucose (mg/dL) 174 H (75-99) mg/dL POC Glu Manager Battery ID [place] Disposition Clinical Impression: Altered mental status, Dehydration Disposition: ADMITTED IP TO THIS HOSP Is patient prescribed a controlled substance at d/c from ED?: No Referrals: Rahul Phelan MD [Primary Care Provider] - 1-2 days Decision Time: 15:05
[2019-03-16] MEDS ORDERED: SODIUM CHLORIDE 0.9% 1,000 ML IV SCH (15:15)
[2019-03-16 16:58] LABS: Glucose,Whole Blood 77 mg/dL (75-99)
[2019-03-16 20:01] LABS: Glucose,Whole Blood 63 mg/dL (75-99)
[2019-03-16 20:30] LABS: Glucose,Whole Blood 70 mg/dL (75-99)
[2019-03-16] MEDS ORDERED: POTASSIUM CHLORIDE ER 20 MEQ TAB.ER PO STA (21:49)
--- NOTE | 2019-03-16 22:08 | P.HPIM ---
History of Present Illness H&P Date: 03/16/19 Chief Complaint: Increasing confusion History of presenting complaint: This is a 83-year-old patient of Dr. Phelan. Chronic stable medical conditions include coronary artery disease with bypass, Karen arthritis, hypertension, diabetes, depression, chronic kidney disease and dementia. Patient lives with her daughter. Patient was transferred here from [facility]. Patient fell yesterday and did bump her head. This morning are talking was a bit off and for last couple patient also brings having more hallucinations example seen people through the window and the birds also talking to people not present. Normally would use a walker this morning was not able to use a walker. Bedtime she's becoming more and more confused about the present think only talks about the past. She did lose her about 6 months ago. for 60 years. At [facility] patient was found to have a bun of 29 and a creatinine of 2.4. Troponin was 0.032. Shortness was found to have an Accu-Chek of 48. He was given an amp of D50 appearance, and a favorable bed. Per the daughter the bedside patient otherwise memory has been gradually failing. Pain does use a walker. Daughter also stated that patient renal function has been gradually worsening Review of systems: GEN.: Tired decreased appetite EYES: None HEENT: Hard of hearing NECK: None RESPIRATORY: None CARDIOVASCULAR: No chest pain GASTROINTESTINAL: None GENITOURINARY: Some incontinence MUSCULOSKELETAL: Joint pains LYMPHATICS: None HEMATOLOGICAL: None PSYCHIATRY: Forgetful, hallucinations NEUROLOGICAL: As above Social history: No smoking, no alcohol, lives with her daughter. 6 months ago. Uses a walker Family history: Patient cannot tell Physical examination: VITAL SIGNS: 98.4, 66, 16, 165/77, 96% room air GENERAL: 27.4, laying in bed comfortable. EYES: Pupils equal. Conjunctiva normal. HEENT: External appearance of nose and ears normal, oral cavity grossly normal, bruising on the forehead. NECK: JVD not raised; masses not palpable. HEART: First and second heart sounds are normal; no edema. LUNGS: Respiratory rate normal; clear to auscultation. ABDOMEN: Soft, nontender, liver spleen not palpable, no masses palpable. PSYCH: [Patient think she is at [facility], she thinks years is 2000 but she knows ([place] season NEUROLOGICAL: Cranial nerves grossly intact; no facial asymmetry, power and sensation grossly intact. LYMPHATICS: No lymph nodes palpable in the axilla and neck MUSCULOSKELETAL: Evidence of OA especially in the hands INVESTIGATIONS, reviewed in the clinical context: From [facility]: white count of 13.4 hemoglobin 10.4 platelets 260 progression 3.3 bun 29 and creatinine 2.4 troponin 0.03 to Accu-Cheks was 48 EKG tracing personally reviewed by me-sinus rhythm with right bundle-branch block Assessment: -This is a patient who fell yesterday bumping her head. Some of the features of that of concussion which can include focal findings including slurring of speech. Patient's had some difficulty walking. 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 Progressive worsening -Chronic urinary stress incontinence -Diabetes mellitus type 2 on oral hypoglycemic -Alzheimer's dementia late onset with worsening -CODE STATUS DO NOT RESUSCITATE Plan: Patient's home medications resumed. Patient will be carefully washed. We'll do fall precautions. Patient has advancing dementia. Give some IV fluids to see if there is any correction of renal function. Had a lengthy discussion patient daughter. Do not expect any dramatic improvement. She does understand that her processes progressive medical social worker will be involved. Patient may require assisted living a long-term placement. Care was discussed with the patient and daughter question were answered. Past Medical History Past Medical History: Cancer, Dementia, Diabetes Mellitus, Hypertension, Myocardial Infarction ([place]), Osteoarthritis (OA) Additional Past Medical History / Comment(s): skin cancer(nose) Last Myocardial Infarction Date:: 1997 History of Any Multi-Drug Resistant Organisms: None Reported Past Surgical History: Appendectomy, Cholecystectomy, Coronary Bypass/CABG, Hysterectomy Additional Past Surgical History / Comment(s): CABG- 9years [address] Rust. skin cancer removed fromnose, rt eye cataract removed, colonoscopy/polyps removed were benign, total rt knee replacement, partial hysterectomy Past Anesthesia/Blood Transfusion Reactions: No Reported Reaction Past Psychological History: Anxiety Additional Psychological History / Comment(s): Patient is ; currently lives with daughter and grandchildren. Per patien the daughter does not know that she is at [facility] and there is no way to contact the family due to not having home phones/cell phones Smoking Status: Never smoker Past Alcohol Use History: None Reported Past Drug Use History: None Reported - Past Family History Father History Unknown: Yes Mother History Unknown: Yes Medications and Allergies Home Medications Medication Instructions Recorded Confirmed Type Atorvastatin [Lipitor] 40 mg PO HS 03/16/19 03/16/19 History Calcium Carbonate [Calcium] 600 mg PO DAILY 03/16/19 03/16/19 History Cinnamon Bark [Cinnamon] 500 mg PO DAILY 03/16/19 03/16/19 History Cranberry(Unknown Dose) 1 tab PO DAILY 03/16/19 03/16/19 History Isosorbide Mononitrate ER [Imdur] 60 mg PO DAILY 03/16/19 03/16/19 History Losartan [Cozaar] 50 mg PO DAILY 03/16/19 03/16/19 History Magnesium Oxide [Mag-Ox] 250 mg PO DAILY 03/16/19 03/16/19 History Metoprolol Tartrate [Lopressor] 50 mg PO BID 03/16/19 03/16/19 History Mirtazapine [Remeron] 15 mg PO HS 03/16/19 03/16/19 History Multivitamins, Thera [Multivitamin 1 tab PO DAILY 03/16/19 03/16/19 History (formulary)] Nitroglycerin Sl Tabs [Nitrostat] 0.4 mg SUBLINGUAL Q5M PRN 03/16/19 03/16/19 History [place]-3 Fatty Acids [[place]-3] 1,000 mg PO DAILY 03/16/19 03/16/19 History Tolterodine ER [Detrol LA] 2 mg PO HS 03/16/19 03/16/19 History Turmeric Root Extract [Turmeric] 500 mg PO DAILY 03/16/19 03/16/19 History Ubidecarenone [Co Q-10] 100 mg PO DAILY 03/16/19 03/16/19 History glipiZIDE [Glucotrol] 10 mg PO DAILY 03/16/19 History Allergies Allergy/AdvReac Type Severity Reaction Status Date / Time No Known Allergies Allergy Verified 03/16/19 15:44 Physical Exam Vitals: Vital Signs Temp Pulse Pulse Resp BP BP Pulse Ox 03/16/19 16:13 97.9 F 68 18 153/81 98 03/16/19 15:53 98.7 F 63 18 158/61 99 03/16/19 14:43 70 22 03/16/19 14:32 98.4 F 72 19 169/68 96 Intake and Output 03/16/19 03/16/19 03/16/19 06:59 14:59 22:59 Intake Total 195 Balance 195 Intake: Intake, IV Titration 75 Amount Sodium Chloride 0.9% 1, 75 000 ml @ 75 mls/hr IV . [id number] [facility] Rx#:[id number] Oral 120 Other: Weight 53.524 kg 53.524 kg Results Labs: Abnormal Lab Results - Last 24 Hours (Table) 03/16/19 03/16/19 03/16/19 Range/Units 14:45 20:00 20:27 POC Glucose (mg/dL) 174 H 63 L 70 L (75-99) mg/dL Thrombosis Risk Factor Assmnt - Choose All That Apply Each Factor Represents 1 point: Medical pt on bed rest Other Risk Factors: Yes Each Risk Factor Represents 3 Points: Age 75 years or older Other congenital or acquired thrombophilia - If yes, enter type in comment: No Thrombosis Risk Factor Assessment Total Risk Factor Score: 4 Thrombosis Risk Factor Assessment Level: Moderate Risk
[2019-03-16] MEDS: DEXTROSE 5%-0.45% NACL 1,000 ML IV SCH (23:05)
[2019-03-16] MEDS: MIRTAZAPINE 15 MG TAB PO SCH (23:27)
[2019-03-16] MEDS: METOPROLOL TARTRATE 50 MG TAB PO SCH (23:27)
[2019-03-16] MEDS: OXYBUTYNIN XL 5 MG TAB.ER.24 PO SCH (23:27)
[2019-03-16] MEDS: ATORVASTATIN 40 MG TAB PO SCH (23:27)
[2019-03-17 03:58] LABS: Calcium 8.4 mg/dL (8.4-10.2); Potassium 3.9 mmol/L (3.5-5.1)
[2019-03-17 04:14] LABS: Anisocytosis Slight; Basophils # (A) 0.1 k/uL (0-0.2); Basophils % (A) 1 %; Eosinophils # (A) 0.4 k/uL (0-0.7); Eosinophils % (A) 4 %; HCT 31.2 % (34.0-46.0); HGB 9.6 gm/dL (11.4-16.0); Hypochromasia Slight; Lymphocytes # (A) 1.7 k/uL (1.0-4.8); Lymphocytes % (A) 18 %; MCH 28.3 pg (25.0-35.0); MCHC 30.8 g/dL (31.0-37.0); MCV 91.6 fL (80.0-100.0); Mean Platelet Volume 8.3; Monocytes # (A) 0.6 k/uL (0-1.0); Monocytes % (A) 6 %; Neutrophils # (A) 6.5 k/uL (1.3-7.7); Neutrophils % (A) 70 %; Platelet Count 212 k/uL (150-450); RBC 3.41 m/uL (3.80-5.40); WBC 9.3 k/uL (3.8-10.6)
[2019-03-17 06:18] LABS: Glucose,Whole Blood 73 mg/dL (75-99)
[2019-03-17] MEDS ORDERED: glipiZIDE 10 MG TAB PO SCH (09:00)
[2019-03-17] MEDS ORDERED: LOSARTAN 50 MG TAB PO SCH (09:00)
[2019-03-17] MEDS ORDERED: NON FORMULARY DRUG (Magnesium Oxide 250 MG) PO SCH (09:00)
[2019-03-17] MEDS ORDERED: NON FORMULARY DRUG (Ubidecarenone [Co Q-10] 100 MG) PO SCH (09:00)
[2019-03-17] MEDS ORDERED: ISOSORBIDE MONONITRATE ER 30 MG TAB.ER.24H PO SCH (09:00)
[2019-03-17] MEDS: CALCIUM CARBONATE 500 MG CHEWABLE PO SCH (09:16)
[2019-03-17] MEDS: MULTIVITAMINS, THERA 1 EACH TAB PO SCH (09:16)
[2019-03-17] MEDS: METOPROLOL TARTRATE 50 MG TAB PO SCH ×2 (09:16→23:00)
--- NOTE | 2019-03-17 12:02 | P.CRDCN ---
History of Present Illness Consult date: 03/17/19 Requesting physician: Scott Gordon Chief complaint: syncope History of present illness: this is an 83-year-old female who follows regularly with Dr. Rust in the office. She has a known history of coronary artery disease with prior bypass surgery, in 1997 at which time she underwent a GARZA to the LAD with s aphenous vein graft to the diagonal. She did have a cardiac catheterization in 2006 which revealed 2 patent grafts and a 60% mid PLV stenosis, she also has history of diabetes, hypertension, hyperlipidemia, peripheral vascular disease. Most recently the patient underwent a cardiac catheterization in November 2017 which revealed calcified coronary arteries subsequent admission to the hospital in February 2018 she was treated medically at that time. Patient presented to [facility] on this occasionaccording to the documentation, because patient was noted to be dizzy, not walking study, having some hallucinations, she was apparently seeing people in the windows and seeing birds that were not there. On Friday patient apparently fell, walking into the bathroom, her walker hit the LAD she and she fell over hitting her head. For this reason patient was brought to [facility] for further evaluation and treatment. Her blood pressure on arrival there was 214/96 with a heart rate in the 70s, afebrile. Laboratory data [facility] was reviewed, white blood cell count 13.5, hemoglobin 10.4, platelet count 260 sodium 141, potassium 3.3, chloride 108, BUN 29, creatinine 2.4. Troponin 0.032. On arrival to the emergency center, patient was found to be quite hypoglycemic at 48 she received an amp of D50 and did seem to improve somewhat. She continued to be mildly confused and there was a thought that she may have incurred a CVA. Patient was subsequently transferred to [facility] for further treatment patient did have an x-ray of her right elbow which revealed some soft tissue swelling of the right elbow with advanced osteoarthritic degenerative change and possible radial head fracture. A chest x-ray was also performed which showed cardiomegaly with mild prominence of the pulmonary vascular markings. EKG performed at [facility] showed a normal sinus rhythm with a right bundle branch block pattern and nonspecific ST-T wave changes. A cardiology consultation was requested because of abnormal troponin..blood pressure here 194/80 with a heart rate in the 70s, 98% on 2 L of oxygen.White blood cell count 9.3, hemoglobin 9.6, platelet count 212. Sodium 141, potassium 3.9, BUN 26 and creatinine 2.0.troponins 0.0-7, 0.025, 0.020.patient does complain of some mild chest discomfort, but states that she has bad most of the time, there is no change from her usual according to her. Past Medical History Past Medical History: Cancer, Dementia, Diabetes Mellitus, Hypertension, Myocardial Infarction ([place]), Osteoarthritis (OA) Additional Past Medical History / Comment(s): skin cancer(nose) Last Myocardial Infarction Date:: 1997 History of Any Multi-Drug Resistant Organisms: None Reported Past Surgical History: Appendectomy, Cholecystectomy, Coronary Bypass/CABG, Hysterectomy Additional Past Surgical History / Comment(s): CABG- [address] Rust. skin cancer removed fromnose, rt eye cataract removed, colonoscopy/polyps removed were benign, total rt knee replacement, partial hysterectomy Past Anesthesia/Blood Transfusion Reactions: No Reported Reaction Past Psychological History: Anxiety Additional Psychological History / Comment(s): Patient is ; currently lives with daughter and grandchildren. Per patien the daughter does not know that she is at [facility] and there is no way to contact the family due to not having home phones/cell phones Smoking Status: Never smoker Past Alcohol Use History: None Reported Past Drug Use History: None Reported - Past Family History Father History Unknown: Yes Mother History Unknown: Yes Medications and Allergies Home Medications Medication Instructions Recorded Confirmed Type Atorvastatin [Lipitor] 40 mg PO HS 03/16/19 03/16/19 History Calcium Carbonate [Calcium] 600 mg PO DAILY 03/16/19 03/16/19 History Cinnamon Bark [Cinnamon] 500 mg PO DAILY 03/16/19 03/16/19 History Isosorbide Mononitrate ER [Imdur] 60 mg PO DAILY 03/16/19 03/16/19 History Losartan [Cozaar] 50 mg PO DAILY 03/16/19 03/16/19 History Magnesium Oxide [Mag-Ox] 250 mg PO DAILY 03/16/19 03/16/19 History Metoprolol Tartrate [Lopressor] 50 mg PO BID 03/16/19 03/16/19 History Mirtazapine [Remeron] 15 mg PO HS 03/16/19 03/16/19 History Multivitamins, Thera [Multivitamin 1 tab PO DAILY 03/16/19 03/16/19 History (formulary)] Nitroglycerin Sl Tabs [Nitrostat] 0.4 mg SUBLINGUAL Q5M PRN 03/16/19 03/16/19 History [place]-3 Fatty Acids [[place]-3] 1,000 mg PO DAILY 03/16/19 03/16/19 History Tolterodine ER [Detrol LA] 2 mg PO HS 03/16/19 03/16/19 History Turmeric Root Extract [Turmeric] 500 mg PO DAILY 03/16/19 03/16/19 History Ubidecarenone [Co Q-10] 100 mg PO DAILY 03/16/19 03/16/19 History glipiZIDE [Glucotrol] 10 mg PO DAILY 03/16/19 03/17/19 History Aspirin 81 mg PO DAILY 03/17/19 03/17/19 History Cranberry Fruit Extract [Cranberry] 500 mg PO DAILY 03/17/19 03/17/19 History Allergies Allergy/AdvReac Type Severity Reaction Status Date / Time No Known Allergies Allergy Verified 03/16/19 15:44 Physical Exam Vitals: Vital Signs Temp Pulse Pulse Resp BP BP Pulse Ox 03/17/19 08:00 98.1 F 70 16 196/81 98 03/17/19 04:00 98.7 F 71 17 183/79 96 03/17/19 00:00 97.9 F 68 19 171/75 98 03/16/19 20:00 97.4 F L 69 17 185/80 99 03/16/19 16:13 97.9 F 68 18 153/81 98 03/16/19 15:53 98.7 F 63 18 158/61 99 03/16/19 14:43 70 22 03/16/19 14:32 98.4 F 72 19 169/68 96 Intake and Output 03/16/19 03/17/19 03/17/19 22:59 06:59 14:59 Intake Total 195 615 360 Balance 195 615 360 Intake: Intake, IV Titration 75 375 Amount Dextrose 5%-0.45% NaCl 1, 150 000 ml @ 75 mls/hr IV . [id number] [facility] Rx#:[id number] Sodium Chloride 0.9% 1, 75 225 000 ml @ 75 mls/hr IV . [id number] [facility] Rx#:[id number] Oral 120 240 360 Other: Voiding Method Bedside Commode Bedside Commode # Voids 2 4 Weight 53.524 kg 53.5 kg PHYSICAL EXAMINATION: GENERAL:83-year-old female in no acute distress at the time of my examination HEENT: Head is atraumatic, normocephalic. Pupils equal, round. Sclera anicteric. Conjunctiva are clear. Mucous membranes of the mouth are moist. Neck is supple. There is no elevated jugular venous pressure.no carotid bruit is heard. HEART EXAMINATION: Heart S1 and S2 systolic murmur is heard CHEST EXAMINATION:lungs reveal crackles to bilateral bases. ABDOMEN: [ Soft, nontender. Bowel sounds are heard. No organomegaly noted]. EXTREMITIES:[ 2+ peripheral pulses with no evidence of peripheral edema and no calf tenderness noted]. NEUROLOGIC [patient is awake, alert and oriented 1 . Results 03/17/19 03:36 03/17/19 03:36 Cardiac Enzymes 03/16/19 03/16/19 03/17/19 Range/Units 15:19 21:32 03:36 Troponin I 0.027 0.025 0.020 (0.000-0.034) ng/mL CBC 03/17/19 Range/Units 03:36 WBC 9.3 (3.8-10.6) k/uL RBC 3.41 L (3.80-5.40) m/uL Hgb 9.6 L (11.4-16.0) gm/dL Hct 31.2 L (34.0-46.0) % Plt Count 212 (150-450) k/uL Comprehensive Metabolic Panel 03/17/19 Range/Units 03:36 Sodium 141 (137-145) mmol/L Potassium 3.9 (3.5-5.1) mmol/L Chloride 113 H (98-107) mmol/L Carbon Dioxide 21 L (22-30) mmol/L BUN 26 H (7-17) mg/dL Creatinine 2.04 H (0.52-1.04) mg/dL Glucose 76 (74-99) mg/dL Calcium 8.4 (8.4-10.2) mg/dL Current Medications Generic Name Dose Route Start Last Admin Trade Name Freq PRN Reason Stop Dose Admin Atorvastatin Calcium 40 mg 03/16/19 21:45 03/16/19 23:27 Lipitor PO 40 mg HS JAIRO Administration Calcium Carbonate/Glycine 500 mg 03/17/19 09:00 03/17/19 09:16 Tums PO 500 mg DAILY JAIRO Administration Dextrose/Sodium Chloride 1,000 mls @ 75 mls/hr 03/16/19 22:15 03/16/19 23:05 Dextrose 5%-1/2ns Iv Soln IV 75 mls/hr .[id number] JAIRO Administration Isosorbide Mononitrate 60 mg 03/17/19 09:00 03/17/19 09:16 Imdur PO 60 mg DAILY JAIRO Administration Losartan Potassium 50 mg 03/17/19 09:00 03/17/19 09:16 Cozaar PO 50 mg DAILY JAIRO Administration Metoprolol Tartrate 50 mg 03/16/19 21:45 03/17/19 09:16 Lopressor PO 50 mg BID JAIRO Administration Mirtazapine 15 mg 03/16/19 21:45 03/16/19 23:27 Remeron PO 15 mg HS JAIRO Administration Multivitamins 1 each 03/17/19 09:00 03/17/19 09:16 Theragran PO 1 each DAILY JAIRO Administration Naloxone HCl 0.2 mg 03/16/19 15:05 Narcan IV Q2M PRN Opioid Reversal Oxybutynin Chloride 5 mg 03/16/19 21:45 03/16/19 23:27 Ditropan Xl PO 5 mg HS JAIRO Administration Intake and Output 03/16/19 03/17/19 03/17/19 22:59 06:59 14:59 Intake Total 195 615 360 Balance 195 615 360 Intake: Intake, IV Titration 75 375 Amount Dextrose 5%-0.45% NaCl 1, 150 000 ml @ 75 mls/hr IV . [id number] [facility] Rx#:[id number] Sodium Chloride 0.9% 1, 75 225 000 ml @ 75 mls/hr IV . [id number] [facility] Rx#:[id number] Oral 120 240 360 Other: Voiding Method Bedside Commode Bedside Commode # Voids 2 4 Weight 53.524 kg 53.5 kg 03/17/19 03:36 03/17/19 03:36 EKG Interpretations (text) EKG shows a normal sinus rhythm with a right bundle branch block pattern Assessment and Plan Plan: Assessment and plan #1 mental status changes, with associated fall, no evidence of syncope.possible dehydration. #2 diabetes #3 hypertension #4 hyperlipidemia #5 peripheral vascular disease #6 Acute on chronic renal insufficiency, baseline creatinine 0.9 #7 coronary artery disease with prior bypass surgery in 1997 at which time patient underwent GARZA to the LAD and saphenous vein graft to the diagonal branch. She did have a heart cath performed in 2006 chest revealed 2 patent grafts with 60% lesion in the PLV branch, and subsequent cardiac catheterization was performed in February 2018 which revealed calcified coronary arteries with subtotally occluded LAD, moderate disease in the right nondominant vessel as well as circumflex, patent GARZA to the LAD and patent saphenous vein graft to the diagonal branch #8 low-grade temperature with elevated white blood cell count on admission, white blood cell count today is 12.5. #9 mild abnormality in troponin,no significant rise and fall pattern, not suggestive of acute coronary syndrome. Plan We will repeat an echocardiogram with Doppler study, the most recent echo the patient had done was in which revealed a normal LV function at that time with moderate mitral regurgitation.continue Lipitor 40 mg daily,increase Imdur to 120 mg daily and add Ranexa to the patient's medication regime.discontinue the Cozaar, creatinine is 2.0. Patient's baseline is 0.9. Add Norvasc to the medication regime to optimize blood pressure control.further recommendations to follow. DNP note has been reviewed, I agree with a documented findings and plan of care. Patient was seen and examined.
[2019-03-17 12:10] LABS: Glucose,Whole Blood 138 mg/dL (75-99)
[2019-03-17] MEDS: amLODIPine 5 MG TAB PO SCH (12:12)
--- NOTE | 2019-03-17 14:41 | P.PN ---
Subjective Progress Note Date: 03/17/19 This is a pleasant 44-year-old gentleman with no prior documented history of hypertension, no diabetes, nonsmoker, he states that he has borderline hyperlipidemia, he does not drink alcohol on a daily basis but states that when he does drink alcohol he drinks quite a bit at one time. According to the p atientone week ago today, patient states that he had a discomfort in his chest which he described as feeling his heart pounding, he denies any nausea, no diaphoresis, no shortness of breath,symptoms lasted approximately 2 hours in duration and patient states he did take an aspirin. Patient states since then he just felt mildly tired, subsequent to that patient actually did not think anymore about it. Yesterday the patient went to see his primary care doctor, he mentioned the symptoms to him, and was orderedto have an EKG and to go and have blood work including a troponin. Patient states he was told his EKG looked okay. Patient states he was called at 8:00 last night come to the hospital because of abnormality in troponin. Chest x-ray on presentation here was normal.EKG on presentation here showed a normal sinus rhythm with inferiior lateral ST-T wave changes. Subsequent EKG continued to show normal sinus rhythm with changes in the inferior lateral leads. Blood pressure on arrival here 130/80 with a heart rate in the 60s to the 80s, 99% on room air.White blood cell count is normal, hemoglobin 15.1, platelet count 225. Sodium 140, potassium 3.9, BUN 17, creatinine 1.0, magnesium 2.0.initial troponin 0.077, subsequent troponin 0.073. Cholesterol 193, LDL 128, HDL 40, triglycerides 123. At the time of my examination this morning, patient is currently chest pain-free. 03/17/2018 Patient underwent a cardiac catheterization yesterday by Dr. Rust which revealed normal coronary arteries with mildly elevated left ventricular end- diastolic pressure. It is possible that the patient had a vasospastic event or ruptured a plaque.a d-dimer was ordered which came back to be negative. We also on a rule out the possibility of myocarditis, sed rate and CRP will be ordered today, and on discharge tomorrow patient is advised to have a cardiac MRI performed. Overall the patient feels well today, denies any chest discomfort, no shortness of breath. He had 1 brief run of an atrial tachycardia, had a mild episode of dizziness but overall feels well today. We will continue to monitor him for another 24 hours Objective - Vital Signs Vital signs: Vital Signs Temp 98.1 F 03/17/19 08:00 Pulse 62 03/17/19 12:00 Resp 16 03/17/19 12:00 BP 180/81 03/17/19 12:00 Pulse Ox 100 03/17/19 12:00 Intake & Output 03/16/19 03/17/19 03/17/19 18:59 06:59 18:59 Intake Total 75 735 560 Balance 75 735 560 Weight 53.524 kg 53.5 kg Intake: Intake, IV Titration 75 375 Amount Dextrose 5%-0.45% NaCl 1, 150 000 ml @ 75 mls/hr IV . [id number] [facility] Rx#:[id number] Sodium Chloride 0.9% 1, 75 225 000 ml @ 75 mls/hr IV . [id number] [facility] Rx#:[id number] Oral 360 560 Other: Voiding Method Bedside Commode Bedside Commode # Voids 4 - Exam PHYSICAL EXAMINATION: GENERAL:44-year-old gentleman in no acute distress at the time of my examination HEENT: Head is atraumatic, normocephalic. Pupils equal, round. Sclera anicteric. Conjunctiva are clear. Mucous membranes of the mouth are moist. Neck is supple. There is no elevated jugular venous pressure.no carotid bruit is heard. HEART EXAMINATION: [Heart S1, S2 normal. No murmur or gallop heard.] CHEST EXAMINATION:[ Lungs are clear to auscultation and precussion. No chest wall tenderness is noted on palpation or with deep breathing.] ABDOMEN: [ Soft, nontender. Bowel sounds are heard. No organomegaly noted]. EXTREMITIES:[ 2+ peripheral pulses with no evidence of peripheral edema and no calf tenderness noted].right radial site clean and dry, good distal pulse. NEUROLOGIC [patient is awake, alert and oriented 3.] . - Labs CBC & Chem 7: 03/17/19 03:36 03/17/19 03:36 Labs: Abnormal Lab Results - Last 24 Hours (Table) 03/16/19 03/16/19 03/16/19 Range/Units 14:45 20:00 20:27 RBC (3.80-5.40) m/uL Hgb (11.4-16.0) gm/dL Hct (34.0-46.0) % MCHC (31.0-37.0) g/dL RDW (11.5-15.5) % Chloride (98-107) mmol/L Carbon Dioxide (22-30) mmol/L BUN (7-17) mg/dL Creatinine (0.52-1.04) mg/dL POC Glucose (mg/dL) 174 H 63 L 70 L (75-99) mg/dL 03/17/19 03/17/19 03/17/19 Range/Units 03:36 03:36 06:15 RBC 3.41 L (3.80-5.40) m/uL Hgb 9.6 L (11.4-16.0) gm/dL Hct 31.2 L (34.0-46.0) % MCHC 30.8 L (31.0-37.0) g/dL RDW 17.0 H (11.5-15.5) % Chloride 113 H (98-107) mmol/L Carbon Dioxide 21 L (22-30) mmol/L BUN 26 H (7-17) mg/dL Creatinine 2.04 H (0.52-1.04) mg/dL POC Glucose (mg/dL) 73 L (75-99) mg/dL 03/17/19 Range/Units 12:05 RBC (3.80-5.40) m/uL Hgb (11.4-16.0) gm/dL Hct (34.0-46.0) % MCHC (31.0-37.0) g/dL RDW (11.5-15.5) % Chloride (98-107) mmol/L Carbon Dioxide (22-30) mmol/L BUN (7-17) mg/dL Creatinine (0.52-1.04) mg/dL POC Glucose (mg/dL) 138 H (75-99) mg/dL Assessment and Plan Plan: Assessment and plan #1 mental status changes, with associated fall, no evidence of syncope.possible dehydration. #2 diabetes #3 hypertension #4 hyperlipidemia #5 peripheral vascular disease #6 Acute on chronic renal insufficiency, baseline creatinine 0.9 #7 coronary artery disease with prior bypass surgery in 1997 at which time patient underwent GARZA to the LAD and saphenous vein graft to the diagonal branch. She did have a heart cath performed in 2006 chest revealed 2 patent grafts with 60% lesion in the PLV branch, and subsequent cardiac catheterization was performed in February 2018 which revealed calcified coronary arteries with subtotally occluded LAD, moderate disease in the right nondominant vessel as well as circumflex, patent GARZA to the LAD and patent saphenous vein graft to the diagonal branch #8 low-grade temperature with elevated white blood cell count on admission, w kassidy blood cell count today is 12.5. #9 mild abnormality in troponin,no significant rise and fall pattern, not suggestive of acute coronary syndrome. Plan Echocardiac gram with Doppler studyrevealed an ejection fraction of 55- 60%.catheterization revealed normal coronary arteries with mildly elevated left ventricular end-diastolic pressure, it is possible the patient on a vasospastic event or ruptured plaque. We will add Plavix to his medication regime. We also want to rule out the possibility of myocarditis and we will order a sed rate and CRP and recommended the patient undergo cardiac MRI as an outpatient. DNP note has been reviewed, I agree with a documented findings and plan of care. Patient was seen and examined.
[2019-03-17 17:09] LABS: Glucose,Whole Blood 182 mg/dL (75-99)
[2019-03-17] MEDS: RANOLAZINE 500 MG TAB.ER.12H PO SCH ×2 (17:38→23:00)
[2019-03-17 21:06] LABS: Glucose,Whole Blood 195 mg/dL (75-99)
[2019-03-17] MEDS: DEXTROSE 5%-0.45% NACL 1,000 ML IV SCH ×2 (21:07→23:05)
[2019-03-17] MEDS: OXYBUTYNIN XL 5 MG TAB.ER.24 PO SCH (23:00)
[2019-03-17] MEDS: MIRTAZAPINE 15 MG TAB PO SCH (23:00)
[2019-03-17] MEDS: ATORVASTATIN 40 MG TAB PO SCH (23:00)
--- NOTE | 2019-03-17 23:21 | P.PN ---
Progress Note - Text Progress Note Date: 03/17/19 Chief Complaint: Increasing confusion History of presenting complaint: This is a 83-year-old patient of Dr. Phelan. Chronic stable medical conditions include coronary artery disease with bypass, Karen arthritis, hypertension, diabetes, depression, chronic kidney disease and dementia. Patient lives with her daughter. Patient was transferred here from [facility]. Patient fell yesterday and did bump her head. This morning are talking was a bit off and for last couple patient also brings having more hallucinations example seen people through the window and the birds also talking to people not present. Normally would use a walker this morning was not able to use a walker. Bedtime she's becoming more and more confused about the present think only talks about the past. She did lose her about 6 months ago. for 60 years. At [facility] patient was found to have a bun of 29 and a creatinine of 2.4. Troponin was 0.032. Shortness was found to have an Accu-Chek of 48. He was given an amp of D50 appearance, and a favorable bed. Per the daughter the bedside patient otherwise memory has been gradually failing. Pain does use a walker. Daughter also stated that patient renal function has been gradually worsening admitted with concussion secondary to fall. Other medical issues are chronic and progressive. Today-sitting up in bed. Did tolerate some diet. No pain. Review of systems: Was done for constitutional, cardiovascular, GI, pulmonary. relevant finding as above Active Medications Amlodipine Besylate (Norvasc) 5 mg PO DAILY [facility] Last Admin: 03/17/19 12:12 Dose: 5 mg Documented by: Atorvastatin Calcium (Lipitor) 40 mg PO HS [facility] Last Admin: 03/17/19 23:00 Dose: 40 mg Documented by: Calcium Carbonate/Glycine (Tums) 500 mg PO DAILY [facility] Last Admin: 03/17/19 09:16 Dose: 500 mg Documented by: Dextrose/Sodium Chloride (Dextrose 5%-1/2ns Iv Soln) 1,000 mls @ 75 mls/hr IV .[id number] [facility] Last Admin: 03/17/19 23:05 Dose: Not Given Documented by: Isosorbide Mononitrate (Imdur) 120 mg PO DAILY [facility] Metoprolol Tartrate (Lopressor) 50 mg PO BID [facility] Last Admin: 03/17/19 23:00 Dose: 50 mg Documented by: Mirtazapine (Remeron) 15 mg PO HS [facility] Last Admin: 03/17/19 23:00 Dose: 15 mg Documented by: Multivitamins (Theragran) 1 each PO DAILY [facility] Last Admin: 03/17/19 09:16 Dose: 1 each Documented by: Naloxone HCl (Narcan) 0.2 mg IV Q2M PRN PRN Reason: Opioid Reversal Oxybutynin Chloride (Ditropan Xl) 5 mg PO HS [facility] Last Admin: 03/17/19 23:00 Dose: 5 mg Documented by: Ranolazine (Ranexa) 500 mg PO Q12HR [facility] Last Admin: 03/17/19 23:00 Dose: 500 mg Documented by: Physical examination: VITAL SIGNS: 98.1, 70, 16, 196/81, 98% on 2 L GENERAL: laying in bed, awake EYES: Pupils equal. Conjunctiva normal. HEENT: External appearance of nose and ears normal, oral cavity grossly normal, bruising on the forehead. NECK: JVD not raised; masses not palpable. HEART: First and second heart sounds are normal; no edema. LUNGS: Respiratory rate normal; clear to auscultation. ABDOMEN: Soft, nontender, liver spleen not palpable, no masses palpable. PSYCH: able to answer simple questions MUSCULOSKELETAL: Evidence of OA especially in the hands INVESTIGATIONS, reviewed in the clinical context: White count 9.3 hemoglobin 9.6 bun 26 creatinine 2.04 Previous testing From [facility]: white count of 13.4 hemoglobin 10.4 platelets 260 progression 3.3 bun 29 and creatinine 2.4 troponin 0.03 to Accu-Cheks was 48 EKG tracing personally reviewed by me-sinus rhythm with right bundle-branch block Assessment: -This is a patient who fell yesterday bumping her head. Some of the features of that of concussion which can include focal findings including slurring of speech. Patient's had some difficulty walking. 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 Progressive worsening -Chronic urinary stress incontinence -Diabetes mellitus type 2 on oral hypoglycemic, uncontrolled with hypoglycemia -Alzheimer's dementia late onset with worsening -CODE STATUS DO NOT RESUSCITATE Plan: continue with gentle hydration.sugars are coming up. Medication treatment plan is to continue. Social work is looking into discharge planning. Repeat labs in the morning. No need for any further testing at this point.
[2019-03-18] MEDS: RANOLAZINE 500 MG TAB.ER.12H PO SCH ×2 (09:05→22:09)
[2019-03-18] MEDS: ISOSORBIDE MONONITRATE ER 60 MG TAB.ER.24H PO SCH (09:05)
[2019-03-18] MEDS: METOPROLOL TARTRATE 50 MG TAB PO SCH ×2 (09:05→22:08)
[2019-03-18] MEDS: amLODIPine 5 MG TAB PO SCH (09:05)
[2019-03-18] MEDS: CALCIUM CARBONATE 500 MG CHEWABLE PO SCH (09:05)
[2019-03-18] MEDS: MULTIVITAMINS, THERA 1 EACH TAB PO SCH (09:06)
--- NOTE | 2019-03-18 11:45 | ECHOF ---
Referral Reason:syncope MEASUREMENTS -------- HEIGHT: 139.7 cm WEIGHT: 53.1 kg BP: 180/81 RVIDd: 4.0 cm (< 3.3) IVSd: 1.7 cm (0.6 - 1.1) LVIDd: 3.7 cm (3.9 - 5.3) LVPWd: 1.8 cm (0.6 - 1.1) IVSs: 2.0 cm LVIDs: 2.5 cm LVPWs: 2.1 cm LAESV Index (A-L): 52.66 ml/m Ao Diam: 2.1 cm (2.0 - 3.7) AV Cusp: 1.3 cm (1.5 - 2.6) LA Diam: 5.0 cm (2.7 - 3.8) MV EXCURSION: 12.451 mm (> 18.000) MV EF SLOPE: 55 mm/s (70 - 150) EPSS: 0.5 cm MV E Ayan: 1.40 m/s MV DecT: 160 ms MV A Ayan: 1.37 m/s MV E/A Ratio: 1.02 AR PHT: 793 ms RAP: 5.00 mmHg RVSP: 60.11 mmHg FINDINGS -------- Sinus rhythm. This was a technically adequate study. The left ventricular size is normal. There is severe concentric left ventricular hypertrophy. The re is normal global left ventricular contractility. Overall left ventricular systolic function is n ormal with, an EF between 55 - 60 %. Septal wall motion is delayed, and consistent with conduction delay/bundle branch block. The right ventricle is mildly enlarged. LA is severely dilated >40 ml/m2 The right atrium is mildly enlarged. Interatrial and interventricular septum intact. The aortic valve is trileaflet and appears structurally normal. There is mild aortic regurgitation. There is no evidence of aortic stenosis. Mild mitral annular calcification present. Tnxbllip-[id number]-[id number] mitral regurgitation is present. Moderate to severe tricuspid regurgitation present. There is moderate to severe pulmonary hypertens ion. The right ventricular systolic pressure, as measured by Doppler, is 60.11mmHg. There is no pulmonic regurgitation present. The aortic root size is normal. IVC Not well visulized. There is no pericardial effusion. CONCLUSIONS -------- 1. Sinus rhythm. 2. This was a technically adequate study. 3. The left ventricular size is normal. 4. There is severe concentric left ventricular hypertrophy. 5. There is normal global left ventricular contractility. 6. Overall left ventricular systolic function is normal with, an EF between 55 - 60 %. 7. Septal wall motion is delayed, and consistent with conduction delay/bundle branch block. 8. The right ventricle is mildly enlarged. 9. LA is severely dilated >40 ml/m2 10. The right atrium is mildly enlarged. 11. Interatrial and interventricular septum intact. 12. The aortic valve is trileaflet and appears structurally normal. 13. There is mild aortic regurgitation. 14. There is no evidence of aortic stenosis. 15. Mild mitral annular calcification present. 16. Yysxpsna-au-wwynkx mitral regurgitation is present. 17. Moderate to severe tricuspid regurgitation present. 18. There is moderate to severe pulmonary hypertension. 19. The right ventricular systolic pressure, as measured by Doppler, is 60.11mmHg. 20. There is no pulmonic regurgitation present. 21. The aortic root size is normal. 22. IVC Not well visulized. 23. There is no pericardial effusion. [employer] MOTHER: Yoanna Cohen RDCS
[2019-03-18 11:57] LABS: Glucose,Whole Blood 161 mg/dL (75-99)
--- NOTE | 2019-03-18 11:57 | P.PN ---
Subjective Progress Note Date: 03/18/19 this is an 83-year-old female who follows regularly with Dr. Rust in the office. She has a known history of coronary artery disease with prior bypass surgery, in 1997 at which time she underwent a GARZA to the LAD with saphenous vein graft to the diagonal. She did have a cardiac catheterization in 2006 which revealed 2 patent grafts and a 60% mid PLV stenosis, she also has history of diabetes, hypertension, hyperlipidemia, peripheral vascular disease. Most recently the patient underwent a cardiac catheterization in November 2017 which revealed calcified coronary arteries subsequent admission to the hospital in February 2018 she was treated medically at that time. Patient presented to [facility] on this occasionaccording to the documentation, because patient was noted to be dizzy, not walking study, having some hallucinations, she was apparently seeing people in the windows and seeing birds that were not there. On Friday patient apparently fell, walking into the bathroom, her walker hit the LAD she and she fell over hitting her head. For this reason patient was brought to [facility] for further evaluation and treatment. Her blood pressure on arrival there was 214/96 with a heart rate in the 70s, afebrile. Laboratory data [facility] was reviewed, white blood cell count 13.5, hemoglobin 10.4, platelet count 260 sodium 141, potassium 3.3, chloride 108, BUN 29, creatinine 2.4. Troponin 0.032. On arrival to the emergency center, patient was found to be quite hypoglycemic at 48 she received an amp of D50 and did seem to improve somewhat. She continued to be mildly confused and there was a thought that she may have incurred a CVA. Patient was subsequently transferred to [facility] for further treatment patient did have an x-ray of her right elbow wh ich revealed some soft tissue swelling of the right elbow with advanced osteoarthritic degenerative change and possible radial head fracture. A chest x-ray was also performed which showed cardiomegaly with mild prominence of the pulmonary vascular markings. EKG performed at [facility] showed a normal sinus rhythm with a right bundle branch block pattern and nonspecific ST-T wave changes. A cardiology consultation was requested because of abnormal troponin..blood pressure here 194/80 with a heart rate in the 70s, 98% on 2 L of oxygen.White blood cell count 9.3, hemoglobin 9.6, platelet count 212. Sodium 141, potassium 3.9, BUN 26 and creatinine 2.0.troponins 0.0-7, 0.025, 0.020.patient does complain of some mild chest discomfort, but states that she has bad most of the time, there is no change from her usual according to her. 03/18/2019 Patient seen and examined this morning, she is quite confused, currently in restraints.blood pressure 168/70 with a heart rate in the 60s, 97% on room air. Objective - Vital Signs Vital signs: Vital Signs Temp 98.4 F 03/18/19 08:00 Pulse 74 03/18/19 08:00 Resp 16 03/18/19 08:00 BP 193/77 03/18/19 08:00 Pulse Ox 94 L 03/18/19 08:00 Intake & Output 03/17/19 03/18/19 03/18/19 18:59 06:59 18:59 Intake Total 1160 0 10 Balance 1160 0 10 Weight 52.5 kg Intake: Intake, IV Titration 400 Amount Dextrose 5%-0.45% NaCl 1, 400 000 ml @ 75 mls/hr IV . [id number] [facility] Rx#:[id number] Oral 760 0 10 Other: Voiding Method Bedside Commode Bedside Commode # Voids 3 - Exam PHYSICAL EXAMINATION: GENERAL:83-year-old female in no acute distress at the time of my examination HEENT: Head is atraumatic, normocephalic. Pupils equal, round. Sclera anic teric. Conjunctiva are clear. Mucous membranes of the mouth are moist. Neck is supple. There is no elevated jugular venous pressure.no carotid bruit is heard. HEART EXAMINATION: Heart S1 and S2 systolic murmur is heard CHEST EXAMINATION:lungs reveal crackles to bilateral bases. ABDOMEN: [ Soft, nontender. Bowel sounds are heard. No organomegaly noted]. EXTREMITIES:[ 2+ peripheral pulses with no evidence of peripheral edema and no calf tenderness noted]. NEUROLOGIC [patient is awake, alert confused and mildly combative - Labs CBC & Chem 7: 03/17/19 03:36 03/17/19 03:36 Labs: Abnormal Lab Results - Last 24 Hours (Table) 03/17/19 03/17/19 03/17/19 Range/Units 12:05 17:04 21:04 POC Glucose (mg/dL) 138 H 182 H 195 H (75-99) mg/dL Assessment and Plan Plan: Assessment and plan #1 mental status changes, with associated fall, no evidence of syncope.possible dehydration. #2 diabetes #3 hypertension #4 hyperlipidemia #5 peripheral vascular disease #6 Acute on chronic renal insufficiency, baseline creatinine 0.9 #7 coronary artery disease with prior bypass surgery in 1997 at which time patient underwent GARZA to the LAD and saphenous vein graft to the diagonal branch. She did have a heart cath performed in 2006 chest revealed 2 patent grafts with 60% lesion in the PLV branch, and subsequent cardiac catheterization was performed in February 2018 which revealed calcified coronary arteries with subtotally occluded LAD, moderate disease in the right nondominant vessel as well as circumflex, patent GARZA to the LAD and patent saphenous vein graft to th e diagonal branch #8 low-grade temperature with elevated white blood cell count on admission, white blood cell count today is 12.5. #9 mild abnormality in troponin,no significant rise and fall pattern, not suggestive of acute coronary syndrome. plan From cardiology's perspective, we'll follow this patient along with you now on an as-needed basis only, please don't hesitate to call with any questions. DNP note has been reviewed, I agree with a documented findings and plan of care. Patient was seen and examined.
[2019-03-18 12:39] LABS: Potassium 4.4 mmol/L (3.5-5.1)
[2019-03-18] MEDS ORDERED: risperiDONE 0.25 MG TAB PO STA (13:28)
[2019-03-18 17:05] LABS: Glucose,Whole Blood 156 mg/dL (75-99)
[2019-03-18 20:48] LABS: Glucose,Whole Blood 249 mg/dL (75-99)
[2019-03-18] MEDS ORDERED: risperiDONE 0.5 MG TAB PO SCH (21:00)
[2019-03-18] MEDS: ATORVASTATIN 40 MG TAB PO SCH (22:08)
[2019-03-18] MEDS: MIRTAZAPINE 15 MG TAB PO SCH (22:09)
[2019-03-18] MEDS: OXYBUTYNIN XL 5 MG TAB.ER.24 PO SCH (22:09)
[2019-03-19 06:08] LABS: Glucose,Whole Blood 148 mg/dL (75-99)
[2019-03-19 06:52] VITALS: TEMP 98.3
[2019-03-19] MEDS ORDERED: risperiDONE 0.25 MG TAB PO SCH (09:00)
[2019-03-19 12:10] LABS: Glucose,Whole Blood 125 mg/dL (75-99)
[2019-03-19] MEDS: ISOSORBIDE MONONITRATE ER 60 MG TAB.ER.24H PO SCH (12:46)
[2019-03-19] MEDS: amLODIPine 5 MG TAB PO SCH (12:46)
[2019-03-19] MEDS: METOPROLOL TARTRATE 50 MG TAB PO SCH (12:47)
[2019-03-19] MEDS: CALCIUM CARBONATE 500 MG CHEWABLE PO SCH (12:47)
[2019-03-19] MEDS: RANOLAZINE 500 MG TAB.ER.12H PO SCH (12:47)
[2019-03-19] MEDS: MULTIVITAMINS, THERA 1 EACH TAB PO SCH (12:47)
[2019-03-19 12:52] VITALS: BP 171/76; PULSE 70
[2019-03-19 14:46] VITALS: RESP 16
--- NOTE | 2019-03-19 21:22 | P.PN ---
Progress Note - Text Progress Note Date: 03/18/19 Chief Complaint: Increasing confusion Hospital course: This is a 83-year-old patient of Dr. Phelan. Chronic stable medical conditions include coronary artery disease with bypass, osteoarthritis, hypertension, diabetes, depression, chronic kidney disease and dementia. Patient lives with her daughter. Patient was transferred here from [facility]. Patient fell yesterday and did bump her head. This morning talking was a bit off and for last couple patient also having more hallucinations example seen people through the window and the birds also talking to people not present. Normally would use a walker this morning was not able to use a walker. Bedtime she's becoming more and more confused about the present think only talks about the past. She did lose her about 6 months ago. for 60 years. At [facility] patient was found to have a bun of 29 and a creatinine of 2.4. Troponin was 0.032. Accu-Chek of 48. given an amp of D50,, with a fair response. Per the daughter the bedside patient otherwise memory has been gradually failing. does use a walker. Daughter also stated that patient renal function has been gradually worsening admitted with concussion secondary to fall. Other medical issues are chronic and progressive. Today-. Remains confused. Did sleep well last night. Patient remains confused and fidgety. Often hallucinating. Patient had a sitter Review of systems: Was attempted for constitutional, cardiovascular, GI, pulmonary. relevant finding as above Current medications reviewed in today's electronic records Physical examination: VITAL SIGNS: 98.8, 71, 16, 128/64, 95% on room air GENERAL: laying in bed, awake EYES: Pupils equal. Conjunctiva normal. HEENT: External appearance of nose and ears normal, oral cavity grossly normal, bruising on the forehead. NECK: JVD not raised; masses not palpable. HEART: First and second heart sounds are normal; no edema. LUNGS: Respiratory rate normal; clear to auscultation. ABDOMEN: Soft, nontender, liver spleen not palpable, no masses palpable. PSYCH: Confused, answers questions MUSCULOSKELETAL: Evidence of OA especially in the hands INVESTIGATIONS, reviewed in the clinical context: White count 9.3 hemoglobin 9.6 bun 26 creatinine 2.04 Previous testing From [facility]: white count of 13.4 hemoglobin 10.4 platelets 260 progression 3.3 bun 29 and creatinine 2.4 troponin 0.03 to Accu-Cheks was 48 EKG tracing personally reviewed by me-sinus rhythm with right bundle-branch block Assessment: -Concussion secondary to fall, POA -Coronary artery disease with a history of bypass -Primary osteoarthritis -Essential hypertension -Depression otherwise specified -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 Progressive worsening -Chronic urinary stress incontinence -Diabetes mellitus type 2 on oral hypoglycemic, uncontrolled with hypoglycemia -Alzheimer's dementia late onset with psychosis, worsening, including the fact that she is a new environment to the hospital -CODE STATUS DO NOT RESUSCITATE Plan: Had a lengthy talk with the patient's daughter over the phone. Did explain that this current process progresses patient with dementia. Also got a new environment will make things worse. Inpatient rehab patrician will not really make a difference in the clinical picture and schedule things. In fact going to [facility] for rehab. Make things worse because of new environment. Also discussed with the social services technician [place]. This point was decided to try medications see patient does liters at night that'll make it easier for the family to manage. Patient be started on Risperdal 0.25 mg the morning and 0.5 mg at night. Total time spent today was about 45 minutes with over 30 minutes of discussion.
--- NOTE | 2019-03-19 21:25 | P.DS ---
Providers Date of admission: 03/18/19 10:04 Expected date of discharge: 03/19/19 Attending physician: Scott Gordon Primary care physician: Rahul Phelan [facility] Course: Chief Complaint: Increasing confusion Hospital course: This is a 83-year-old patient of Dr. Phelan. Chronic stable medical conditions include coronary artery disease with bypass, osteoarthritis, hypertension, diabetes, depression, chronic kidney disease and dementia. Patient lives with her daughter. Patient was transferred here from [facility]. Patient fell yesterday and did bump her head. This morning talking was a bit off and for last couple patient also having more hallucinations example seen people through the window and the birds also talking to people not present. Normally would use a walker this morning was not able to use a walker. Bedtime she's becoming more and more confused about the present think only talks about the past. She did lose her about 6 months ago. for 60 years. At [facility] patient was found to have a bun of 29 and a creatinine of 2.4. Troponin was 0.032. Accu-Chek of 48. given an amp of D50,, with a fair response. Per the daughter the bedside patient otherwise memory has been gradually failing. does use a walker. Daughter also stated that patient renal function has been gradually worsening admitted with concussion secondary to fall. Other medical issues are chronic and progressive. Patient became more confused in the hospital. Was given risperidone. Which she responded well. Slept well at night. This morning into all her breakfast. Much more calm. Family will be taking the patient home. They have more help at home. Consultation: Dr. VC Mckeon from cardiology Physical examination: VITAL SIGNS: 98.3, ATN, 18, 127/97% room air GENERAL: laying in bed, more comfortable EYES: Pupils equal. Conjunctiva normal. HEENT: External appearance of nose and ears normal, oral cavity grossly normal, bruising on the forehead. NECK: JVD not raised; masses not palpable. HEART: First and second heart sounds are normal; no edema. LUNGS: Respiratory rate normal; clear to auscultation. ABDOMEN: Soft, nontender, liver spleen not palpable, no masses palpable. PSYCH: More calm today. Answering occasional questions MUSCULOSKELETAL: Evidence of OA especially in the hands INVESTIGATIONS, reviewed in the clinical context: White count 9.3 hemoglobin 9.6 bun 26 creatinine 2.04 Previous testing From [facility]: white count of 13.4 hemoglobin 10.4 platelets 260 progression 3.3 bun 29 and creatinine 2.4 troponin 0.03 to Accu-Cheks was 48 EKG tracing personally reviewed by me-sinus rhythm with right bundle-branch block Assessment: -Concussion secondary to fall, POA -Coronary artery disease with a history of bypass -Primary osteoarthritis -Essential hypertension -Depression otherwise specified -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 Progressive worsening -Chronic urinary stress incontinence -Diabetes mellitus type 2 on oral hypoglycemic, uncontrolled with hypoglycemia -Alzheimer's dementia late onset with psychosis, worsening, including the fact that she is a new environment in the hospital -CODE STATUS DO NOT RESUSCITATE Disposition: Home Patient Condition at Discharge: Undetermined Plan - Discharge Summary Discharge Rx Participant: No New Discharge Prescriptions: New amLODIPine [Norvasc] 5 mg PO DAILY #30 tab risperiDONE [RisperDAL] 0.25 mg PO DAILY #30 tab risperiDONE [RisperDAL] 0.5 mg PO HS #30 tab Continue Nitroglycerin Sl Tabs [Nitrostat] 0.4 mg SUBLINGUAL Q5M PRN PRN Reason: Chest Pain Losartan [Cozaar] 50 mg PO DAILY Tolterodine ER [Detrol LA] 2 mg PO HS Metoprolol Tartrate [Lopressor] 50 mg PO BID Isosorbide Mononitrate ER [Imdur] 60 mg PO DAILY Atorvastatin [Lipitor] 40 mg PO HS Aspirin 81 mg PO DAILY Discontinued glipiZIDE [Glucotrol] 10 mg PO DAILY Mirtazapine [Remeron] 15 mg PO HS Magnesium Oxide [Mag-Ox] 250 mg PO DAILY Multivitamins, Thera [Multivitamin (formulary)] 1 tab PO DAILY Turmeric Root Extract [Turmeric] 500 mg PO DAILY Cinnamon Bark [Cinnamon] 500 mg PO DAILY Calcium Carbonate [Calcium] 600 mg PO DAILY Ghent-3 Fatty Acids [Ghent-3] 1,000 mg PO DAILY Ubidecarenone [Co Q-10] 100 mg PO DAILY Cranberry Fruit Extract [Cranberry] 500 mg PO DAILY Discharge Medication List Atorvastatin [Lipitor] 40 mg PO HS 03/16/19 [History] Isosorbide Mononitrate ER [Imdur] 60 mg PO DAILY 03/16/19 [History] Losartan [Cozaar] 50 mg PO DAILY 03/16/19 [History] Metoprolol Tartrate [Lopressor] 50 mg PO BID 03/16/19 [History] Nitroglycerin Sl Tabs [Nitrostat] 0.4 mg SUBLINGUAL Q5M PRN 03/16/19 [History] Tolterodine ER [Detrol LA] 2 mg PO HS 03/16/19 [History] Aspirin 81 mg PO DAILY 03/17/19 [History] amLODIPine [Norvasc] 5 mg PO DAILY #30 tab 03/19/19 [Rx] risperiDONE [RisperDAL] 0.25 mg PO DAILY #30 tab 03/19/19 [Rx] risperiDONE [RisperDAL] 0.5 mg PO HS #30 tab 03/19/19 [Rx] Follow up Appointment(s)/Referral(s): Tomasa Rust MD [STAFF PHYSICIAN] - 2 Weeks () Rahul Phelan MD [Primary Care Provider] - 3 Days Patient Instructions/Handouts: Dehydration (DC), Acute Kidney Injury (DC), Hypertension (DC) Discharge Disposition: HOME WITH HOME HEALTH SERVICES
== END 2019-03-19 15:00 | disposition home health service (06) | DRG 89 ==
LOC: EC 14:30 → 3SCARD 15:05 → OBSVTOIN 03-18 10:04
PROVIDERS: ADMIT Hospitalist; ATTEND Hospitalist
DX: S06.0X0A Concussion without loss of consciousness, initial encounter (principal); F02.81 Dementia in other diseases classified elsewhere, unspecified severity, with behavioral disturbance; R44.2 Other hallucinations; N18.3 Chronic kidney disease, stage 3 (moderate); M19.91 Primary osteoarthritis, unspecified site; Z66 Do not resuscitate; Z96.651 Presence of right artificial knee joint; I25.10 Atherosclerotic heart disease of native coronary artery without angina pectoris; I12.9 Hypertensive chronic kidney disease with stage 1 through stage 4 chronic kidney disease, or unspecified chronic kidney disease; F32.9 Major depressive disorder, single episode, unspecified; F41.9 Anxiety disorder, unspecified; G30.1 Alzheimer's disease with late onset; E86.0 Dehydration; E11.649 Type 2 diabetes mellitus with hypoglycemia without coma; E78.5 Hyperlipidemia, unspecified; E11.51 Type 2 diabetes mellitus with diabetic peripheral angiopathy without gangrene; F02.80 Dementia in other diseases classified elsewhere, unspecified severity, without behavioral disturbance, psychotic disturbance, mood disturbance, and anxiety; E11.22 Type 2 diabetes mellitus with diabetic chronic kidney disease; I45.10 Unspecified right bundle-branch block; N39.3 Stress incontinence (female) (male); W19.XXXA Unspecified fall, initial encounter; R47.81 Slurred speech; R26.2 Difficulty in walking, not elsewhere classified; I25.2 Old myocardial infarction; Z79.82 Long term (current) use of aspirin; Z79.899 Other long term (current) drug therapy; Z79.84 Long term (current) use of oral hypoglycemic drugs; Z90.711 Acquired absence of uterus with remaining cervical stump; Z85.828 Personal history of other malignant neoplasm of skin; Z78.1 Physical restraint status; Z95.1 Presence of aortocoronary bypass graft; Z90.49 Acquired absence of other specified parts of digestive tract; Z98.41 Cataract extraction status, right eye
CPT/HCPCS: 36415; 80048; 82550; 84484; 85025; 93306; 94760; 99285